=== PATIENT | male | born 2000 | race Caucasian/White ===

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

== ENCOUNTER 2020-05-19 15:26 | Outpatient (REF) | payer OTHER, SELFPAY ==
[2020-05-20 11:22] LABS: SARS COV2 PCR INHOUSE NEGATIVE (Negative)
== END 2020-05-19 15:27 | disposition home or self-care (01) ==
LOC: HO.LAB 15:26
PROVIDERS: Visit Provider Internal Medicine
DX: Z20.822 Contact with and (suspected) exposure to COVID-19 (principal)
CPT/HCPCS: C9803; U0003

== ENCOUNTER 2021-08-21 22:45 | Emergency (ER) | payer OTHER, SELFPAY ==
--- NOTE | ~2021-08-21 | CT_ITS ---
EXAMINATION: CT ABDOMEN AND PELVIS WITH CONTRAST CLINICAL INFORMATION: Right lower quadrant pain. Leukocytosis. COMPARISON: None TECHNIQUE: Multidetector volumetric images were obtained from the superior aspect of the liver through the pubic symphysis following administration 85 mL of Omnipaque 350 intravenous contrast. Sagittal and coronal reformatted images were obtained on the technologist's workstation. Oral contrast: No This CT examination was performed using dose optimization techniques as appropriate, variously including the following: *Automated exposure control *Adjustment of mA and/or kV according to patient size (this includes techniques or standardized protocols for targeted exams where dose is matched to indication/reason for exam; i.e. extremities or head) *Use of iterative reconstruction technique DLP: Four 57 mGy-cm FINDINGS: LUNG BASES: The visualized lung bases are unremarkable. LIVER, GALLBLADDER, AND BILIARY TREE: The liver is normal in size, shape, and attenuation. No focal hepatic lesion or biliary ductal dilatation is present. The gallbladder is unremarkable with no evidence of radiopaque gallstones, gallbladder wall thickening, or obvious pericholecystic inflammatory changes. PANCREAS: Unremarkable. SPLEEN: Unremarkable. ADRENAL GLANDS: Unremarkable. KIDNEYS AND URETERS: The kidneys are normal in size, shape, and attenuation. No hydronephrosis, hydroureter, or calculi seen. No perinephric stranding. BLADDER: Unremarkable. GASTROINTESTINAL TRACT: The stomach is unremarkable. Normal caliber small bowel. No obstruction. The appendix is identified. This measures 0.5 cm. No associated wall thickening or adjacent inflammation. No colonic wall thickening or inflammatory change. No free air or free fluid. ABDOMINAL WALL: No significant hernia is appreciated. LYMPH NODES: Normal. VASCULAR: Unremarkable. PELVIC VISCERA: The prostate and seminal vesicles are unremarkable. OSSEOUS STRUCTURES: Unremarkable. CT/CT abdomen pelvis w con IMPRESSION: No acute findings in the abdomen or pelvis. Normal appendix. No inflammatory change. Fleischner guidelines were followed.
[2021-08-21 23:38] VITALS: BP 107/44; PULSE 84; RESP 18; TEMP 37.1; O2SAT 97; BMI 29.8
[2021-08-21] MEDS: Ondansetron ODT 4 MG TAB.RAPDIS TRANSLINGU (23:41)
[2021-08-21 23:52] LABS: MANUAL DIFF FLAG NO
[2021-08-21 23:55] LABS: Basophils Absolute Auto 0.1 X10*3/uL (0.0-0.2); Basophils Percent Auto 0.6 % (0-2); Eosinophils Absolute Auto 0.4 X10*3/uL (0.0-0.4); Eosinophils Percent Auto 2.4 % (0-4); Hematocrit 38.9 % (42.0-52.0); Hemoglobin 12.8 g/dl (14.0-18.0); Imm Gran Abs Auto 0.05 X10*3/uL (0.00-0.03); Imm Gran Pct Auto 0.3 % (0.0-0.4); Lymphocytes Percent Auto 12.2 % (20-40); Mean Corpuscular HGB Conc 32.9 g/dl (31.0-36.0); Mean Corpuscular Hemoglobin 26.7 pg (27.0-33.0); Mean Corpuscular Volume 81.2 fL (80.0-98.0); Mean Platelet Volume 9.9 fL (9.4-12.4); Monocytes Absolute Auto 1.4 X10*3/uL (0.1-1.2); Monocytes Percent Auto 8.6 % (2-11); Neutrophils Absolute Auto 12.3 x10*3/uL (2.0-8.3); Neutrophils Percent Auto 75.9 % (45-73); Platelet Count 297 X10*3/uL (160-400); Red Blood Count 4.79 X10*6/uL (4.60-5.80); Red Cell Distribution Width 13.1 % (11.0-16.0); White Blood Count 16.2 X10*3/uL (4.8-10.8)
[2021-08-22 00:10] LABS: Appearance Urine CLEAR; Color Urine YELLOW; Glucose Urine UA NEG (NEG); Leukocyte Esterase Urine NEG (NEG); Nitrite Urine NEG (NEG); Specific Gravity - Urine 1.025 (1.005-1.025); Urine Blood NEG (NEG); Urine Ketones NEG (NEG); Urine Protein NEG (NEG-TRACE)
[2021-08-22 00:14] LABS: Alanine Aminotransferase 123 U/L (0-40); Albumin Level 4.6 g/dL (3.5-5.0); Alkaline Phosphatase 96 U/L (39-117); Anion Gap 13 (12-20); Aspartate Amino Transferase 61 U/L (5-37); Bilirubin Direct 0.3 mg/dL (0.0-0.5); Bilirubin Total 0.8 mg/dL (0.0-1.0); Blood Urea Nitrogen 13 mg/dL (9-16); Calcium 9.5 mg/dL (8.4-10.2); Carbon Dioxide 25 mmol/L (22-29); Chloride 105 mmol/L (96-108); Creatinine Clr Calc Pharmacy 114.5; Estimated Glomerular Filt Rate > 60; Glucose Random 92 mg/dL (60-115); Potassium 3.8 mmol/L (3.3-5.1); Sodium 139 mmol/L (135-145); Total Protein 7.6 g/dL (6.5-8.0)
[2021-08-22 00:25] LABS: COVID-19 Test Negative (Negative); IDNOW Serial# 55D5AD1C
--- NOTE | 2021-08-22 00:48 | ED_ITS ---
HPI - Abdominal Pain General Chief Complaint: Abdominal Pain <Chrissie CastilloBEAN - Last Filed: 08/22/21 02:36> Stated Complaint: Abd pain <Chrissie CastilloBEAN - Last Filed: 08/22/21 02:36> Time Seen by Provider: 08/22/21 00:44 <Chrissie CastilloBEAN - Last Filed: 08/22/21 02:36> Source: patient <Chrissie Castillo BEAN - Last Filed: 08/22/21 02:36> Mode of arrival: ambulatory <Chrissie CastilloBEAN - Last Filed: 08/22/21 02:36> Limitations: no limitations <Chrissie CastilloBEAN - Last Filed: 08/22/21 02:36> History of Present Illness HPI narrative: Patient presents emergency department for evaluation of right lower quadrant pain. He reports initially experiencing 1st episode of severe right lower quadrant abdominal pain with sudden onset a little over 1 month ago. He has continued to have intermittent episodes of pain in this area over the past month. He states that anywhere from 1-3 weeks ago he had an outpatient CT of his abdomen ordered by his primary care doctor at [facility], However he is unaware of the results and states that nobody contacted him regarding them. He decided to come to the emergency department today because he was experiencing significantly worsened pain to the right lower quadrant, 10/10, stabbing in nature, with associated nausea. He states that about 30 minutes prior to my exa m the pain had improved some but is still present. Denies fevers, chills, chest pain, palpitations, shortness of breath, vomiting, diarrhea, constipation, bloody or dark stools, dysuria, urinary frequency, family history of colon cancer. <Chrissie GarciaBEAN hopson - Last Filed: 08/22/21 02:36> Related Data Home Medications: Previous Rx's Medication Instructions Recorded benzonatate 100 mg capsule 100 mg PO TID PRN cough #15 caps 12/26/19 (Marbin Estrada) ibuprofen 400 mg tablet 400 mg PO Q6H PRN pain #28 tabs 12/26/19 amoxicillin 500 mg tablet 500 mg PO Q12H #20 tabs 12/30/19 <Chrissierobin Castillo CNP - Last Filed: 08/22/21 02:36> Allergies/Adverse Reactions: Allergies Allergy/AdvReac Type Severity Reaction Status Date / Time cat dander [CAT] Allergy Intermediate SNEEZING Unverified 11/01/19 16:58 ITCHY EYES <Chrissie Castillo CNP - Last Filed: 08/22/21 02:36> Review of Systems Review of Systems Constitutional : No Weight loss, No Fever, No Chills ENT/Mouth :? No sore throat, No Rhinorrhea Eyes: No Swelling, No Redness Cardiovascular : No Chest Pain, No SOB, No Edema Respiratory : No Cough, No Sputum, No Wheezing Gastrointestinal : Positive Nausea, No Vomiting, positive Diarrhea, positive ab dominal pain, No Hematochezia, No Melena Genitourinary : No Dysuria, No Urinary Frequency, No Hematuria, No Urgency? Musculoskeletal : No joint pain, No Myalgias, No Joint Swelling Skin : No Skin Lesions, No rash Neuro : No Weakness, No Numbness, No Dizziness, No Headache Psych : No Anxiety/Panic, No Depression Heme/Lymph: No Bruising, No Lymphadenopathy Endocrine : No Polyuria, No Polydipsia <Chrissie Castillo CNP - Last Filed: 08/22/21 02:36> Yes all other systems are reviewed and are negative <Chrissie Castillo CNP - Last Filed: 08/22/21 02:36> [facility] Past Medical History Attestation statement: The following information was validated with the patient. <Chrissie Castillo CNP - Last Filed: 08/22/21 02:36> Source: old records reviewed <Chrissie Castillo CNP - Last Filed: 08/22/21 02:36> Social History Social History: Social History Advance Directives: No Advance Directives Information Provided: No <Chrissie Castillo CNP - Last Filed: 08/22/21 02:36> Physical Exam ED Vital Signs: Vital Signs - 24 hr 08/21/21 23:38 08/22/21 02:24 Temperature 98.7 F Pulse Rate 84 71 Respiratory Rate 18 14 Blood Pressure 107/44 L 106/51 L Pulse Oximetry 97 98 Oxygen Delivery Method Room Air Room Air BMI result Body Mass Index 29.8 Vital signs have been reviewed as normal and appeared to be correct. Blood pressure normal.? Heart rate normal.? Respiration rate normal. Temperature norm al.? Oxygen saturation normal. <Chrissie Castillo CNP - Last Filed: 0 08/22/21 02:36> Vital Signs - 24 hr 08/21/21 23:38 08/22/21 02:24 Temperature 98.7 F Pulse Rate 84 71 Respiratory Rate 18 14 Blood Pressure 107/44 L 106/51 L Pulse Oximetry 97 98 Oxygen Delivery Method Room Air Room Air BMI result Body Mass Index 29.8 <Arin Abraham MD - Last Filed: 08/22/21 04:02> Appearance: Alert.?Oriented to person, place and time. No acute distre ss.?Normal affect. Eyes: Pupils equal, round and reactive to light.? ENT: Pharynx normal.?? Neck: Normal inspection.? Neck supple.?? CVS: Heart sounds normal. Normal heart rate and rhythm.? Pulses normal.?? Respiratory: No respiratory distress.? Lung sounds clear to auscultation bilaterally?? Abdomen: Soft With right lower quadrant tenderness. Normoactive bowel sounds. No pulsatile mass.??No rebound tenderness, negative Rovsing sign, negative obturator's sign, negative psoas sign Skin: Skin warm and dry.? Normal skin color.? Extremities: No lower extremity edema.? Neuro: Moves all extremities spontaneously. Sensation intact bilaterally. CN II- XII intact. No focal neuro deficits. Ambulates with normal steady gait. <Chrissie Castillo CNP - Last Filed: 08/22/21 02:36> Course Course Course Narrative: Patient is a 21-year-old male with no significant past medical history presenting to emergency department for evaluation of right lower quadrant pain. Does endorse some heavy lifting and moving of objects at work, there may be a component of muscular strain given his pain has been recurrent. Initial onset just over a month ago, but reports severe pain today with associated nausea. Labs obtained in triage revealed leukocytosis 16.2, elevated AST and ALT 61/123 respectively, urinalysis without sign of infection or microscopic hematuria. Denies any alcohol or recreational drug usage. Recent CT of the abdomen outpatient, concerning findings. Patient does have tenderness to the right lower quadrant on exam, concerning for possible appendicitis, given leukocytosis will obtain CT of the abdomen for further evaluation of intra-abdominal pat hology. At this time pain is currently 2/10, denies nausea. He is overall well appearing, hemodynamically stable. Disposition will be pending results. <Chrissie Castillo CNP - Last Filed: 08/22/21 02:36> Patient is a 21-year-old male with no significant past medical history presenting to emergency department for evaluation of right lower quadrant pain. Does endorse some heavy lifting and moving of objects at work, there may be a component of muscular strain given his pain has been recurrent. Initial onset just over a month ago, but reports severe pain today with associated nausea. Labs obtained in triage revealed leukocytosis 16.2, elevated AST and ALT 61/123 respectively, urinalysis without sign of infection or microscopic hematuria. Denies any alcohol or recreational drug usage. Recent CT of the abdomen o utpatient, concerning findings. Patient does have tenderness to the right lower quadrant on exam, concerning for possible appendicitis, given leukocytosis will obtain CT of the abdomen for further evaluation of intra-abdominal pathology. At this time pain is currently 2/10, denies nausea. He is overall well appearing, hemodynamically stable. Disposition will be pending results. 0400: Review of all investigations otherwise negative for acute findings. All results discussed with patient at bedside. On re-evaluation patient appears very comfortable is walking, laughing and talking his significant other. <Arin Abraham MD - Last Filed: 08/22/21 04:02> Reevaluation(s) Reevaluation #1: Patient signed out to Dr. Abraham, pending CT of abdomen for disposition. <Chrissie Castillo CNP - Last Filed: 08/22/21 02:36> Time: 02:34 <Chrissie Castillo CNP - Last Filed: 08/22/21 02:36> MDM - Abdominal Pain Medical Records Attestation: I reviewed the patient's medical records. <Chrissie Castillo CNP - Last Filed: 08/22/21 02:36> Lab Data Attestation: I reviewed the patient's lab results. <Chrissie Castillo CNP - Last Filed: 08/22/21 02:36> Result diagrams: : 08/21/21 23:51 08/21/21 23:51 <Chrissie Castillo, [facility] - Last Filed: 08/22/21 02:36> Labs: Lab Results 08/21/21 08/21/21 08/21/21 Range/Units 23:51 23:51 23:51 WBC 16.2 H (4.8-10.8) X10*3/uL RBC 4.79 (4.60-5.80) X10*6/uL Hgb 12.8 L (14.0-18.0) g/dl Hct 38.9 L (42.0-52.0) % MCV 81.2 (80.0-98.0) fL MCH 26.7 L (27.0-33.0) pg MCHC 32.9 (31.0-36.0) g/dl RDW 13.1 (11.0-16.0) % Plt Count 297 (160-400) X10*3/uL MPV 9.9 (9.4-12.4) fL Immature Gran % (Auto) 0.3 (0.0-0.4) % Neut % (Auto) 75.9 H (45-73) % Lymph % (Auto) 12.2 L (20-40) % [place] % (Auto) 8.6 (2-11) % Eos % (Auto) 2.4 (0-4) % Baso % (Auto) 0.6 (0-2) % Lymph # (Auto) 2.0 (1.2-4.9) X10*3/uL [place] # (Auto) 1.4 H (0.1-1.2) X10*3/uL Eos # (Auto) 0.4 (0.0-0.4) X10*3/uL Baso # (Auto) 0.1 (0.0-0.2) X10*3/uL Abs Immat Gran (auto) 0.05 H (0.00-0.03) X10*3/uL Absolute Neuts (auto) 12.3 H (2.0-8.3) x10*3/uL Absolute Nucleated RBC 0.000 (0.0-0.012) X10*3/uL Nucleated RBC % (auto) 0.0 (0.0-0.2) /100WBC Sodium 139 (135-145) mmol/L Potassium 3.8 (3.3-5.1) mmol/L Chloride 105 (96-108) mmol/L Carbon Dioxide 25 (22-29) mmol/L Anion Gap 13 (12-20) BUN 13 (9-16) mg/dL Creatinine 0.90 (0.5-1.4) mg/dL Estim Creat Clear Calc 114.5 Estimated GFR > 60 Random Glucose 92 (60-115) mg/dL Calcium 9.5 (8.4-10.2) mg/dL Total Bilirubin 0.8 (0.0-1.0) mg/dL Direct Bilirubin 0.3 (0.0-0.5) mg/dL AST 61 H (5-37) U/L ALT 123 H (0-40) U/L Alkaline Phosphatase 96 (39-117) U/L Total Protein 7.6 (6.5-8.0) g/dL Albumin 4.6 (3.5-5.0) g/dL Lipase 20 (8-78) U/L Urine Color Urine Appearance Urine pH (5.0-8.0) Ur Specific Brooks (1.005-1.025) Urine Protein (NEG-TRACE) MG/DL Urine Glucose (UA) (NEG) MG/DL Urine Ketones (NEG) MG/DL Urine Blood (NEG) Urine Nitrite (NEG) Ur Leukocyte Esterase (NEG) COVID-19 (NESTOR) Negative (Negative) COVID-19 Clin Com See Note 08/21/21 Range/Units 23:55 WBC (4.8-10.8) X10*3/uL RBC (4.60-5.80) X10*6/uL Hgb (14.0-18.0) g/dl Hct (42.0-52.0) % MCV (80.0-98.0) fL MCH (27.0-33.0) pg MCHC (31.0-36.0) g/dl RDW (11.0-16.0) % Plt Count (160-400) X10*3/uL MPV (9.4-12.4) fL Immature Gran % (Auto) (0.0-0.4) % Neut % (Auto) (45-73) % Lymph % (Auto) (20-40) % [place] % (Auto) (2-11) % Eos % (Auto) (0-4) % Baso % (Auto) (0-2) % Lymph # (Auto) (1.2-4.9) X10*3/uL [place] # (Auto) (0.1-1.2) X10*3/uL Eos # (Auto) (0.0-0.4) X10*3/uL Baso # (Auto) (0.0-0.2) X10*3/uL Abs Immat Gran (auto) (0.00-0.03) X10*3/uL Absolute Neuts (auto) (2.0-8.3) x10*3/uL Absolute Nucleated RBC (0.0-0.012) X10*3/uL Nucleated RBC % (auto) (0.0-0.2) /100WBC Sodium (135-145) mmol/L Potassium (3.3-5.1) mmol/L Chloride (96-108) mmol/L Carbon Dioxide (22-29) mmol/L Anion Gap (12-20) BUN (9-16) mg/dL Creatinine (0.5-1.4) mg/dL Estim Creat Clear Calc Estimated GFR Random Glucose (60-115) mg/dL Calcium (8.4-10.2) mg/dL Total Bilirubin (0.0-1.0) mg/dL Direct Bilirubin (0.0-0.5) mg/dL AST (5-37) U/L ALT (0-40) U/L Alkaline Phosphatase (39-117) U/L Total Protein (6.5-8.0) g/dL Albumin (3.5-5.0) g/dL Lipase (8-78) U/L Urine Color YELLOW Urine Appearance CLEAR Urine pH 6.0 (5.0-8.0) Ur Specific Brooks 1.025 (1.005-1.025) Urine Protein NEG (NEG-TRACE) MG/DL Urine Glucose (UA) NEG (NEG) MG/DL Urine Ketones NEG (NEG) MG/DL Urine Blood NEG (NEG) Urine Nitrite NEG (NEG) Ur Leukocyte Esterase NEG (NEG) COVID-19 (NESTOR) (Negative) COVID-19 Clin Com <Chrissie Garciamark anthony, [employer]OUNTING [employer]IST[employer] - Last Filed: 08/22/21 02:36> Lab Results 08/21/21 08/21/21 08/21/21 Range/Units 23:51 23:51 23:51 WBC 16.2 H (4.8-10.8) X10*3/uL RBC 4.79 (4.60-5.80) X10*6/uL Hgb 12.8 L (14.0-18.0) g/dl Hct 38.9 L (42.0-52.0) % MCV 81.2 (80.0-98.0) fL MCH 26.7 L (27.0-33.0) pg MCHC 32.9 (31.0-36.0) g/dl RDW 13.1 (11.0-16.0) % Plt Count 297 (160-400) X10*3/uL MPV 9.9 (9.4-12.4) fL Immature Gran % (Auto) 0.3 (0.0-0.4) % Neut % (Auto) 75.9 H (45-73) % Lymph % (Auto) 12.2 L (20-40) % [place] % (Auto) 8.6 (2-11) % Eos % (Auto) 2.4 (0-4) % Baso % (Auto) 0.6 (0-2) % Lymph # (Auto) 2.0 (1.2-4.9) X10*3/uL [place] # (Auto) 1.4 H (0.1-1.2) X10*3/uL Eos # (Auto) 0.4 (0.0-0.4) X10*3/uL Baso # (Auto) 0.1 (0.0-0.2) X10*3/uL Abs Immat Gran (auto) 0.05 H (0.00-0.03) X10*3/uL Absolute Neuts (auto) 12.3 H (2.0-8.3) x10*3/uL Absolute Nucleated RBC 0.000 (0.0-0.012) X10*3/uL Nucleated RBC % (auto) 0.0 (0.0-0.2) /100WBC Sodium 139 (135-145) mmol/L Potassium 3.8 (3.3-5.1) mmol/L Chloride 105 (96-108) mmol/L Carbon Dioxide 25 (22-29) mmol/L Anion Gap 13 (12-20) BUN 13 (9-16) mg/dL Creatinine 0.90 (0.5-1.4) mg/dL Estim Creat Clear Calc 114.5 Estimated GFR > 60 Random Glucose 92 (60-115) mg/dL Calcium 9.5 (8.4-10.2) mg/dL Total Bilirubin 0.8 (0.0-1.0) mg/dL Direct Bilirubin 0.3 (0.0-0.5) mg/dL AST 61 H (5-37) U/L ALT 123 H (0-40) U/L Alkaline Phosphatase 96 (39-117) U/L Total Protein 7.6 (6.5-8.0) g/dL Albumin 4.6 (3.5-5.0) g/dL Lipase 20 (8-78) U/L Urine Color Urine Appearance Urine pH (5.0-8.0) Ur Specific Brooks (1.005-1.025) Urine Protein (NEG-TRACE) MG/DL Urine Glucose (UA) (NEG) MG/DL Urine Ketones (NEG) MG/DL Urine Blood (NEG) Urine Nitrite (NEG) Ur Leukocyte Esterase (NEG) COVID-19 (NESTOR) Negative (Negative) COVID-19 Clin Com See Note 08/21/21 Range/Units 23:55 WBC (4.8-10.8) X10*3/uL RBC (4.60-5.80) X10*6/uL Hgb (14.0-18.0) g/dl Hct (42.0-52.0) % MCV (80.0-98.0) fL MCH (27.0-33.0) pg MCHC (31.0-36.0) g/dl RDW (11.0-16.0) % Plt Count (160-400) X10*3/uL MPV (9.4-12.4) fL Immature Gran % (Auto) (0.0-0.4) % Neut % (Auto) (45-73) % Lymph % (Auto) (20-40) % [place] % (Auto) (2-11) % Eos % (Auto) (0-4) % Baso % (Auto) (0-2) % Lymph # (Auto) (1.2-4.9) X10*3/uL [place] # (Auto) (0.1-1.2) X10*3/uL Eos # (Auto) (0.0-0.4) X10*3/uL Baso # (Auto) (0.0-0.2) X10*3/uL Abs Immat Gran (auto) (0.00-0.03) X10*3/uL Absolute Neuts (auto) (2.0-8.3) x10*3/uL Absolute Nucleated RBC (0.0-0.012) X10*3/uL Nucleated RBC % (auto) (0.0-0.2) /100WBC Sodium (135-145) mmol/L Potassium (3.3-5.1) mmol/L Chloride (96-108) mmol/L Carbon Dioxide (22-29) mmol/L Anion Gap (12-20) BUN (9-16) mg/dL Creatinine (0.5-1.4) mg/dL Estim Creat Clear Calc Estimated GFR Random Glucose (60-115) mg/dL Calcium (8.4-10.2) mg/dL Total Bilirubin (0.0-1.0) mg/dL Direct Bilirubin (0.0-0.5) mg/dL AST (5-37) U/L ALT (0-40) U/L Alkaline Phosphatase (39-117) U/L Total Protein (6.5-8.0) g/dL Albumin (3.5-5.0) g/dL Lipase (8-78) U/L Urine Color YELLOW Urine Appearance CLEAR Urine pH 6.0 (5.0-8.0) Ur Specific Brooks 1.025 (1.005-1.025) Urine Protein NEG (NEG-TRACE) MG/DL Urine Glucose (UA) NEG (NEG) MG/DL Urine Ketones NEG (NEG) MG/DL Urine Blood NEG (NEG) Urine Nitrite NEG (NEG) Ur Leukocyte Esterase NEG (NEG) COVID-19 (NESTOR) (Negative) COVID-19 Clin Com <Arin Abraham MD - Last Filed: 08/22/21 04:02> Discharge Plan Discharge Clinical Impression: Abdominal pain <Chrissie Castillo CNP - Last Filed: 08/22/21 02:36> Patient Disposition: Home, Self-Care <Chrissie Castillo CNP - Last Filed: 08/22/21 02:36> Instructions: Abdominal Pain (ED) <Chrissie Castillo CNP - Last Filed: 08/22/21 02:36> Additional Instructions: 1. This is possibly muscular in nature, as there were no findings to better explain your presentation. Recommend [id number] Tylenol/ibuprofen as well as possible lidocaine patch and hot compresses the next time that this happens. 2. Follow-up with primary care provider in the next 2-3 days for re-evaluation. Return to the ER for worsening symptoms. <Chrissie Castillo CNP - Last Filed: 08/22/21 02:36> Prescriptions: No Action benzonatate [Tessalon Perles] 100 mg capsule 100 mg PO TID PRN (Reason: cough) Qty: 15 0RF ibuprofen 400 mg tablet 400 mg PO Q6H PRN (Reason: pain) Qty: 28 0RF amoxicillin 500 mg tablet 500 mg PO Q12H Qty: 20 0RF <Chrissie Castillo CNP - Last Filed: 08/22/21 02:36>
[2021-08-22 01:02] LABS: Lipase 20 U/L (8-78)
[2021-08-22] MEDS: iohexoL 350 MG/ML 100 ML INFUS..BTL 85 ML IV (02:21)
[2021-08-22 02:24] VITALS: BP 106/51; PULSE 71; RESP 14; O2SAT 98
[2021-08-22 04:03] VITALS: BP 105/57; PULSE 78; RESP 16; TEMP 36.8; O2SAT 97
== END 2021-08-22 04:06 | disposition home or self-care (01) ==
PROVIDERS: Internal Medicine; Nurse Practitioner Family; Emergency Provider Student in an Organized Health Care Education/Training Program
DX: R10.31 Right lower quadrant pain (principal); Z20.822 Contact with and (suspected) exposure to COVID-19; R11.0 Nausea
CPT/HCPCS: 36415; 74177; 80053; 81003; 82248; 83690; 85025; 87635; 99284; Q9967

== ENCOUNTER 2022-11-25 09:41 | Emergency (ER) | payer OTHER, SELFPAY ==
--- NOTE | ~2022-11-25 | CT_ITS ---
EXAMINATION: CT CERVICAL SPINE WITHOUT CONTRAST CLINICAL INFORMATION: Fall, increasing pain radiating to arm. COMPARISON: None available. TECHNIQUE: 3 mm thin axial and reformatted 2 mm thin sagittal and coronal images of cervical spine were obtained. This CT examination was performed using dose optimization techniques as appropriate, variously including the following: *Automated exposure control *Adjustment of mA and/or kV according to patient size (this includes techniques or standardized protocols for targeted exams where dose is matched to indication/reason for exam; i.e. extremities or head) *Use of iterative reconstruction technique DLP: 660 mGy-cm FINDINGS: There is mild straightening of cervical lordosis. The vertebral heights, alignment and disc heights are normal. The craniovertebral junction and C1-C2 alignment is normal. There is no visible acute fracture, dislocation or subluxation. The prevertebral and paravertebral soft tissues are normal. Central trachea and the bronchi are widely patent. The lung apices are clear. CT/CT cervical spine wo IV con IMPRESSION: No acute fracture, dislocation or subluxation seen. Mild straightening of cervical lordosis likely spasm. Fleischner guidelines were followed.
[2022-11-25 10:23] VITALS: BP 124/64; PULSE 60; RESP 19; TEMP 36.6; O2SAT 98; BMI 35.7
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
== END 2022-11-25 15:56 | disposition home or self-care (01) ==
PROVIDERS: Emergency Provider Emergency Medicine
DX: S16.1XXA Strain of muscle, fascia and tendon at neck level, initial encounter (principal); Y01.XXXA Assault by pushing from high place, initial encounter; Y93.89 Activity, other specified; Y92.9 Unspecified place or not applicable; Y99.0 Civilian activity done for income or pay
CPT/HCPCS: 72125; 99282; 99284

== ENCOUNTER 2023-05-16 19:22 | Emergency (ER) | payer OTHER, SELFPAY ==
--- NOTE | ~2023-05-16 | XR_ITS ---
EXAMINATION: XR CHEST CLINICAL INFORMATION: Cough. COMPARISON: Chest radiograph 12/26/2019. TECHNIQUE: 2 views of the chest were obtained. FINDINGS: No significant abnormality is noted involving the heart, lungs, mediastinum, bony thorax or soft tissues. XR/XR chest 2V IMPRESSION: Unremarkable examination.
[2023-05-16 20:08] VITALS: BP 115/34; PULSE 72; RESP 20; TEMP 36.7; O2SAT 94; BMI 33.8
--- NOTE | 2023-05-16 20:09 | ED.GENADULT ---
HPI - General Adult General Chief complaint: Dyspnea Stated complaint: breathing difficulties Time Seen by Provider: 05/16/23 20:34 Source: patient Mode of arrival: ambulatory History of Present Illness HPI narrative: 23-year-old male with history of asthma states that he has had increasing dry cough, nasal congestion and shortness of breath for the past 4 days and states that is inhaler is no longer providing additional relief, however he denies any fevers or chills or sick contacts. Related Data Previous Rx's Medication Instructions Recorded benzonatate 100 mg capsule 100 mg PO TID PRN cough #15 caps 12/26/19 (Marbin Estrada) ibuprofen 400 mg tablet 400 mg PO Q6H PRN pain #28 tabs 12/26/19 amoxicillin 500 mg tablet 500 mg PO Q12H #20 tabs 12/30/19 cyclobenzaprine 5 mg tablet 5 mg PO TID PRN muscle spasm #10 11/25/22 tabs lidocaine 5 % topical patch 1 patch topical DAILY #15 ea 11/25/22 prednisone 20 mg tablet 40 mg (2 x 20 mg) PO DAILY #10 tabs 11/25/22 prednisone 50 mg tablet 50 mg PO DAILY 4 days #4 tabs 05/16/23 Allergies Allergy/AdvReac Type Severity Reaction Status Date / Time cat dander [CAT] Allergy Intermediate SNEEZING Verified 05/16/23 20:08 ITCHY EYES Review of Systems Review of Systems: Pertinent positives and negatives as stated in HPI [facility] Past Medical History Source: nursing notes reviewed Social History Social History Smoked in Last 30 Days: Yes Use of substances other than those prescribed or required for medical reasons: No Advance Directives: No Advance Directives Information Provided: No Physical Exam ED Vital Signs: Vital Signs - 24 hr 05/16/23 20:08 05/16/23 20:34 Temperature 98.1 F Pulse Rate 72 80 Respiratory Rate 20 20 Blood Pressure 115/34 L Pulse Oximetry 94 Oxygen Delivery Method Room Air BMI result Body Mass Index 33.8 VITAL SIGNS: Reviewed. GENERAL: Well developed, well nourished, in no acute distress. HEAD: Normocephalic/atraumatic EYES: PERRLA, EOMI EARS: Ext canals without abnormality, TMs non-bulging and non-erythematous NOSE: Nares patent bilateral OROPHARYNX: no oral lesions noted, posterior pharynx clear and non-erythematous without noted tonsillar enlargement/erythema/exudates NECK: Supple, no adenopathy LUNGS: Audible wheeze, decreased breath sounds bilaterally with minimal expiratory wheeze, tachypnea and increased work of breathing or present. SpO2<94> CARDIOVASCULAR: Regular rate and rhythm without noted murmurs ABDOMEN: Soft, non-tender, non-distended with bowel sounds. MUSCULOSKELETAL: No tenderness, deformities, or effusions noted on gross inspection. EXTREMITIES: No cyanosis, clubbing or edema. SKIN: Inspection of the skin reveals no rashes NEUROLOGIC: Alert and oriented x 4. Strength and sensation to light touch were grossly intact x 4. Course Course Course Narrative: This is a rapid medical exam: Additional HPI, ROS, PE not included below will be deferred to primary provider. Patient is a 23-year-old male with history of asthma presenting to the ED with complaint of shortness of breath, wheezing, cough and nasal congestion for the past 3 days. States cough is non-productive. Denies fevers. Using inhalers with little relief. Plan: viral swabs, cxr Medications Administered Discontinued Medications Generic Name Dose Route Start Last Admin Trade Name Freq PRN Reason Stop Dose Admin Albuterol Sulfate 2.5 mg/ 0 mg 05/16/23 20:29 05/16/23 20:33 Albuterol/Ipratropium 3 ml INHALE 05/16/23 20:30 5 dose ONCE ONE Administration Prednisone 50 mg 05/16/23 20:34 05/16/23 20:46 Prednisone 10 Mg Tablet PO 05/16/23 20:35 50 mg ONCE ONE Administration Medical Decision Making Medical Decision Making [facility] Narrative: 23-year-old male with history and clinical presentation, DDX: Acute asthma exacerbation, possible viral illness, no clinical suspicion for pneumonia. INTERVENTION: Chest x-ray, viral testing, ED bronch, prednisone Signed out to Dr Castellon - clinically improvement Took over patient's case the change of shift. Patient's COVID flu RSV were all negative. Lungs are clear at this point. [place] comfortable about going home. Patient is currently in stable condition will discharge Differential Diagnosis Differential Diagnoses: The differential diagnosis associated with the presentation includes Please see the discussion above Admission/Observation Consideration of admission/observation: Escalation of care including admission/observation considered Please see the discussion above Lab Data [facility] Lab Attestation statement: I reviewed the patient's lab results. Please see the discussion above Labs: Lab Results 05/16/23 Range/Units 20:28 Influenza Type A (PCR) NEGATIVE (Negative) Influenza Type B (PCR) NEGATIVE (Negative) RSV RNA Qual (PCR) NEGATIVE (Negative) SARS-CoV-2 RNA (RT-PCR) NEGATIVE (Negative) Radiology Impression Discussion of test interpretation with radiology: I have reviewed the radiologist's reading. Radiologist Impression: Please see the discussion above External Record Review External record reviewed: Outpatient record and Prior outpatient labs Chronic Conditions Patient?s care impacted by: Other Asthma Critical Care Time Critical Care Time Critical Care Time: Yes Total Critical Care Time: 45 Attestation: I personally attest to this time spent taking care of the patient. Discharge Plan Discharge Clinical Impression: Asthma with exacerbation Patient Disposition: Still a Patient Instructions: Asthma (ED) Additional Instructions: 1. Resume all home medications as prescribed. 2. Complete the short course of steroids that you have been started on. 3. I recommend initiating seasonal allergy medications such as Claritin and Flonase 4. Please follow-up with your primary care doctor. Return to the ER for any worsening symptoms. Prescriptions: New prednisone 50 mg tablet 50 mg PO DAILY 4 Days Qty: 4 0RF No Action benzonatate [Tessalon Perles] 100 mg capsule 100 mg PO TID PRN (Reason: cough) Qty: 15 0RF ibuprofen 400 mg tablet 400 mg PO Q6H PRN (Reason: pain) Qty: 28 0RF amoxicillin 500 mg tablet 500 mg PO Q12H Qty: 20 0RF cyclobenzaprine 5 mg tablet 5 mg PO TID PRN (Reason: muscle spasm) Qty: 10 0RF lidocaine 5 % adhesive patch,medicated 1 patch topical DAILY Qty: 15 0RF Rx Instructions: leave on most painful area for up to 12 hrs prednisone 20 mg tablet 40 mg PO DAILY Qty: 10 0RF
[2023-05-16] MEDS: Albuterol Sulfate 2.5 MG, Albuterol/Iprat 2.5/0.5MG 3 ML 3 ML INHALE (20:33)
[2023-05-16 20:34] VITALS: PULSE 80; RESP 20; O2SAT 98
[2023-05-16] MEDS: predniSONE 10 MG TABLET 50 MG PO (20:46)
[2023-05-16 21:11] LABS: Influenza A PCR NEGATIVE (Negative); Influenza B PCR NEGATIVE (Negative); Resp Syncy Virus RNA Qual PCR NEGATIVE (Negative); SARS COV2 PCR INHOUSE NEGATIVE (Negative)
[2023-05-16 21:59] VITALS: BP 108/60; PULSE 70; RESP 20; TEMP 36.6; O2SAT 98
== END 2023-05-16 21:59 | disposition home or self-care (01) ==
PROVIDERS: Registered Nurse Emergency; Emergency Provider Emergency Medicine Emergency Medical Services
DX: J45.901 Unspecified asthma with (acute) exacerbation (principal); R06.02 Shortness of breath; R06.9 Unspecified abnormalities of breathing; Z11.52 Encounter for screening for COVID-19; Z20.822 Contact with and (suspected) exposure to COVID-19
CPT/HCPCS: 0241U; 71046; 94640; 99284

== ENCOUNTER 2023-05-21 10:22 | Observation (INO) | payer OTHER, SELFPAY ==
[2023-05-21] VITALS (11 sets, daily range): BP systolic 114–121; BP diastolic 42–65; PULSE 90–110; RESP 18–26; TEMP 36.3–37.2; O2SAT 90–96; BMI 34.3; BMI 33.7
--- NOTE | ~2023-05-21 | XR_ITS ---
EXAMINATION: XR CHEST CLINICAL INFORMATION: Cough COMPARISON: Chest x-ray on 05/16/2023 TECHNIQUE: Frontal view of the chest was obtained. FINDINGS: The cardiac silhouette is normal. There is mild diffuse bronchial wall thickening. There are no areas of consolidation. There are no pleural effusions or pneumothoraces. The bones and soft tissues are unremarkable for the patient's age. XR/XR chest 1V IMPRESSION: Bronchial wall thickening may be infectious and/or inflammatory in etiology.
[2023-05-21 10:54] LABS: IDNOW Serial# 08D9AD1C; Strep A Nucleic Acid Negative (Negative)
--- NOTE | 2023-05-21 11:27 | ED.GENADULT ---
HPI - General Adult General Chief complaint: Upper Respiratory Symptoms Stated complaint: Breathing Difficulties Time Seen by Provider: 05/21/23 10:38 Source: patient Mode of arrival: ambulatory Limitations: no limitations History of Present Illness HPI narrative: This is a 23-year-old male presenting to the emergency department fatigue, malaise, wheezing, shortness of breath and slight sore throat ongoing for the past 3 days. Patient reports he just has not been feeling well. He has been using his inhaler with little to no relief. He reports he is never felt this poorly. No known sick contacts. Denies chest pain, nausea, vomiting, abdominal pain, diarrhea, headache, vision changes, dizziness, weakness, changes in voice, drooling. Related Data Previous Rx's ?Medication ?Instructions ?Recorded benzonatate 100 mg capsule 100 mg PO TID PRN cough #15 caps 12/26/19 (Marbin Estrada) ibuprofen 400 mg tablet 400 mg PO Q6H PRN pain #28 tabs 12/26/19 amoxicillin 500 mg tablet 500 mg PO Q12H #20 tabs 12/30/19 cyclobenzaprine 5 mg tablet 5 mg PO TID PRN muscle spasm #10 11/25/22 tabs lidocaine 5 % topical patch 1 patch topical DAILY #15 ea 11/25/22 prednisone 20 mg tablet 40 mg (2 x 20 mg) PO DAILY #10 tabs 11/25/22 prednisone 50 mg tablet 50 mg PO DAILY 4 days #4 tabs 05/16/23 albuterol sulfate 90 mcg/actuation 2 inh inhalation Q4-6H PRN 05/21/23 breath activated powder inhaler shortness of breath or wheezing #1 ea prednisone 20 mg tablet 40 mg (2 x 20 mg) PO DAILY 5 days 05/21/23 #10 tabs Allergies Allergy/AdvReac Type Severity Reaction Status Date / Time cat dander [CAT] Allergy Intermediate SNEEZING Verified 05/21/23 10:33 ITCHY EYES Review of Systems Review of Systems: Yes all other systems are reviewed and are negative PMFSH Past Medical History Attestation statement: The following information was validated with the patient. Source: old records reviewed and nursing notes reviewed Social History Social History Smoked in Last 30 Days: Yes Use of substances other than those prescribed or required for medical reasons: No Advance Directives: No Advance Directives Information Provided: No Physical Exam ED Vital Signs: Vital Signs - 24 hr 05/21/23 10:29 05/21/23 11:40 05/21/23 12:15 Temperature 98.7 F Pulse Rate 95 Respiratory Rate 20 Blood Pressure 120/57 L Pulse Oximetry 92 92 94 Oxygen Delivery Method Room Air Room Air Room Air 05/21/23 12:16 05/21/23 13:07 Temperature Pulse Rate 91 Respiratory Rate 26 H Blood Pressure Pulse Oximetry 92 Oxygen Delivery Method Room Air BMI result Body Mass Index 34.3 vss Appearance: Alert.? Oriented X3.? No acute distress.? Head: Normocephalic, atraumatic, no step-offs or deformities Eyes: Pupils equal, round and reactive to light.? ENT: Pharynx normal.? Neck: Normal inspection.? Neck supple.? CVS: Normal heart rate and rhythm.? Pulses normal.? Respiratory: No respiratory distress.? Breath sounds diminished bilaterally with wheezing bilaterally particularly with expiration..? Abdomen: Soft and nontender.? Skin: Skin warm and dry.? Normal skin color.? Normal skin turgor.? Extremities: No lower extremity edema.? No calf ttp. 5/5 strength to bilateral upper and lower extremities Neuro: Oriented X 3.? No motor deficit.? No sensory deficit. CN 2-12 intact Course Reevaluation(s) Reevaluation #1: Flu/COVID/RSV negative. Strep negative. Chest x-ray with bronchial wall thickening infectious versus inflammatory in etiology. This is likely inflammatory. Patient has been evaluated by myself multiple times still having wheezing and diminished breath sounds bilaterally. He is saturating 90% on room air without movement. Reporting significant shortness of breath with exertion. Time: 13:32 Reevaluation #2: will add basic labs for admisison. Time: 13:35 Medications Administered Discontinued Medications Generic Name Dose Route Start Last Admin Trade Name Freq PRN Reason Stop Dose Admin Albuterol Sulfate 5 mg/ 0 mg 05/21/23 13:03 05/21/23 13:06 Albuterol/Ipratropium 3 ml INHALE 05/21/23 13:04 1 each ONCE ONE Administration Dexamethasone Sodium Phosphate 10 mg 05/21/23 11:34 05/21/23 12:15 Dexamethasone Sod Phosphate 10 Mg/Ml Vial IVPUSH 05/21/23 11:35 10 mg ONCE ONE Administration Medical Decision Making Medical Decision Making MDM Narrative: 23-year-old male presents with shortness of breath fatigue, malaise, myalgias, slight sore throat ongoing for the past 3 days. Not improving. Physical exam significant for diminished breath sounds bilaterally with wheezing. Patient appears to be in mild acute respiratory distress. Significantly winded with ambulation. Concerns for asthma versus viral illness versus flu versus COVID versus RSV versus bronchitis. Unlikely pneumonia, PE, ACS. PERC - Plan labs, imaging. , viral testing. Will give breathing treatments, Decadron, magnesium Differential Diagnosis Differential Diagnoses: The differential diagnosis associated with the presentation includes Concerns for asthma versus viral illness versus flu versus COVID versus RSV versus bronchitis. Unlikely pneumonia, PE, ACS. Admission/Observation Consideration of admission/observation: Escalation of care including admission/observation considered Likely Consult Healthcare Provider Management of the patient was discussed with: Hospitalist Lab Data MDM Lab Attestation statement: I reviewed the patient's lab results. Labs: Lab Results 05/21/23 Range/Units 10:39 Influenza Type A (PCR) NEGATIVE (Negative) Influenza Type B (PCR) NEGATIVE (Negative) RSV RNA Qual (PCR) NEGATIVE (Negative) SARS-CoV-2 RNA (RT-PCR) NEGATIVE (Negative) S. pyogenes GrpA LATONIA Negative (Negative) Independent Interpretation I performed an independent interpretation of an: Plain X-Ray ( XR/XR chest 1V IMPRESSION: Bronchial wall thickening may be infectious and/or inflammatory in etiology. ) Radiology Impression Discussion of test interpretation with radiology: I have reviewed the radiologist's reading. External Record Review External record reviewed: Inpatient record, Office record, Outpatient record, Prior outpatient labs, Prior outpatient radiology, Primary care record and Outside ED record Tests considered The following testing was considered but not selected: Consider chest CT however no indication at this time. Chronic Conditions Patient?s care impacted by: Other (Asthma, obesity) Critical Care Time Critical Care Time Critical Care Time: Yes Total Critical Care Time: 35 Attestation: I attest to this time spent taking care of the patient, obtaining history, physical, reviewing labs, imaging, speaking to my attending, speaking to specialist. Discharge Plan Discharge Clinical Impression: Upper respiratory infection, Asthma Patient Disposition: Admitted As Inpatient Instructions: Upper Respiratory Infection (ED), Wheezing (ED) Additional Instructions: Take your medications as prescribed. If you were prescribed antibiotics today, it is important that you take your medication to their entirety, do not skip any doses, do not finish them early. Follow-up with your primary care provider this week. Return to the emergency department with new or worsening symptoms. Such as fevers, chills, chest pain, shortness of breath, nausea, vomiting, dizziness, headache, vision changes, lethargy In case of emergency call 911 Prescriptions: New prednisone 20 mg tablet 40 mg PO DAILY 5 Days Qty: 10 0RF albuterol sulfate 90 mcg/actuation aerosol powdr breath activated 2 inh inhalation Q4-6H PRN (Reason: shortness of breath or wheezing) Qty: 1 0RF No Action benzonatate [Tessalon Perles] 100 mg capsule 100 mg PO TID PRN (Reason: cough) Qty: 15 0RF ibuprofen 400 mg tablet 400 mg PO Q6H PRN (Reason: pain) Qty: 28 0RF amoxicillin 500 mg tablet 500 mg PO Q12H Qty: 20 0RF cyclobenzaprine 5 mg tablet 5 mg PO TID PRN (Reason: muscle spasm) Qty: 10 0RF lidocaine 5 % adhesive patch,medicated 1 patch topical DAILY Qty: 15 0RF Rx Instructions: leave on most painful area for up to 12 hrs prednisone 20 mg tablet 40 mg PO DAILY Qty: 10 0RF prednisone 50 mg tablet 50 mg PO DAILY 4 Days Qty: 4 0RF Referrals: Physician,Unknown J [Primary Care Provider] - 2 days Stand Alone Forms: Work/School Release Print Language: Vietnamese
[2023-05-21 11:33] LABS: Influenza A PCR NEGATIVE (Negative); Influenza B PCR NEGATIVE (Negative); Resp Syncy Virus RNA Qual PCR NEGATIVE (Negative); SARS COV2 PCR INHOUSE NEGATIVE (Negative)
--- NOTE | 2023-05-21 11:47 | MHC.EDTECH ---
Walked patient in [place] 02 stood steady at 94%
[2023-05-21] MEDS: dexAMETHasone sod phosphate 10 MG/ML VIAL IVPUSH (12:15)
[2023-05-21] MEDS: Albuterol Sulfate 5 MG, Albuterol/Iprat 2.5/0.5MG 3 ML 3 ML INHALE (13:06)
--- NOTE | 2023-05-21 14:27 | HO.PM.IMPN ---
Subjective Subjective Date of Service: 05/21/23 Physical Exam Vital Signs: Vital Signs: Last Vital Signs Temp 98.7 F 05/21/23 10:29 Pulse 91 05/21/23 13:07 Resp 26 H 05/21/23 13:07 BP 120/57 L 05/21/23 10:29 Pulse Ox 92 05/21/23 12:16 O2 Del Method Room Air 05/21/23 12:16 BMI result Body Mass Index 34.3 Objective Data Active Medications Magnesium Sulfate (Magnesium Sulfate/H2o) 2 gm in 50 mls @ 25 mls/hr IV ONCE ONE Stop: 05/21/23 15:30 Labs Labs: Laboratory Results - last 24 hr 05/21/23 10:39 Influenza Type A (PCR) NEGATIVE Influenza Type B (PCR) NEGATIVE RSV RNA Qual (PCR) NEGATIVE SARS-CoV-2 RNA (RT-PCR) NEGATIVE S. pyogenes GrpA LATONIA Negative Quality VTE VTE Risk Level:: Medical - low VTE Device Contraindication: N/A - Device Ordered VTE Drug Contraindication: Treatment Not Indicated
--- NOTE | 2023-05-21 14:34 | PM.IMHP ---
History of Present Illness Date of Service: 05/21/23 Attending physician on admission: Madhu Hall Chief Complaint: sob This is a 23-year-old male with history of mild intermittent asthma who presents to the emergency department with shortness of breath. Patient was seen in the emergency department on May 15 with similar symptoms was given a course of prednisone and discharged home. Patient reports shortness of breath with associated dry cough, sinus congestion, headache, sore throat. He denies any fever, chills. No recent sick contacts. His symptoms have not improved therefore he presented again today. Chest x-ray revealed no evidence of pneumonia RSV, flu, influenza negative. Throat swab negative for strep throat. Patient received breathing treatment steroids and IV magnesium but continued to feel short of breath and continued to have wheezing. In addition his oxygen saturations were on the low side, 88-90% and for this reason the decision was made to admit him overnight for observation and further management of acute asthma exacerbation. Review of Systems Review of Systems: Yes all other systems are reviewed and are negative Constitutional: Constitutional: Denies chills and Denies fever(s) [facility] Medical History (Updated 05/21/23 @ 14:36 by LINDSAY Childs) Asthma Pertinent family history: father has history of asthma Social History (Updated 05/21/23 @ 14:37 by LINDSAY Childs) e-Cigarette/Vaping Use: Currently Using Meds Allergies Allergy/AdvReac Type Severity Reaction Status Date / Time cat dander [CAT] Allergy Intermediate SNEEZING Verified 05/21/23 10:33 ITCHY EYES Active Medications: Current Medications Acetaminophen (Acetaminophen 325 Mg Tablet) 650 mg PO Q6H PRN PRN Reason: Pain, Mild (Pain Scale 1-3) Albuterol Sulfate (Albuterol Sulfate (0.083%) 2.5 Mg/3 Ml Vial.Neb) 2.5 mg INHALE Q4H PRN PRN Reason: Shortness of Breath/Wheezing Albuterol/Ipratropium (Albuterol/Iprat 2.5/0.5mg 3 Ml Ampul.Neb) 3 ml INHALE RQ6H WHILE AWAKE CHUYITA Benzonatate (Benzonatate 100 Mg Capsule) 100 mg PO TID CHU[place] Docusate Sodium (Docusate Sodium 100 Mg Capsule) 100 mg PO DAILY PRN PRN Reason: Constipation Magnesium Sulfate (Magnesium Sulfate/H2o) 2 gm in 50 mls @ 25 mls/hr IV ONCE ONE Stop: 05/21/23 15:30 Methylprednisolone Sodium Succinate (Methylprednisolone Sod Succ 40 Mg/Ml Vial) 40 mg IVPUSH Q12H CHU[place] Ondansetron HCl (Ondansetron Hcl 4 Mg/2 Ml Vial) 4 mg IVPUSH Q8H PRN PRN Reason: Nausea and Vomiting Sodium Chloride (0.9 % Sodium Chloride Flush 3 Ml Syringe) 3 ml IVFLUSH QSHIFT CHUYITA Physical Exam Vital Signs and Narrative: Vital Signs: Last Vital Signs Temp 97.3 F 05/21/23 14:30 Pulse 110 H 05/21/23 14:30 Resp 22 H 05/21/23 14:30 BP 121/42 L 05/21/23 14:30 Pulse Ox 94 05/21/23 14:30 O2 Del Method Room Air 05/21/23 14:30 BMI result Body Mass Index 34.3 Const: General: cooperative, comfortable, no acute distress, alert and awake Nutritional Appearance: average body habitus Orientation/consciousness: patient oriented x3 Resp: Other: Bilateral expiratory wheeze Effort & Inspection: normal respiratory effort, able to speak in complete sentences, no respiratory distress and no use of accessory muscles Cardio: Rate: regular rate GI: Inspection: No distended Palpation (GI): Soft to palpation and nontender Neuro: General: patient oriented x3, moves all extremities and CN's II-XI intact bilaterally Extrem: General: Yes no pedal edema Results Labs Labs: Laboratory Results - last 24 hr 05/21/23 10:39 Influenza Type A (PCR) NEGATIVE Influenza Type B (PCR) NEGATIVE RSV RNA Qual (PCR) NEGATIVE SARS-CoV-2 RNA (RT-PCR) NEGATIVE S. pyogenes GrpA LATONIA Negative Imaging Radiologist's Impressions: Impressions Chest X-Ray 05/21/23 10:49 IMPRESSION: Bronchial wall thickening may be infectious and/or inflammatory in etiology. Assessment and Plan (1) Asthma: Status: Inactive Plan This is a 23-year-old male with history of mild intermittent asthma who presents to the emergency department for the 2nd time this week with ongoing shortness of breath, cough will be admitted for observation for asthma exacerbation Acute exacerbation of mild intermittent asthma Scheduled and as needed bronchodilator therapy, systemic steroids Supportive care for cough We will check respiratory pathogen panel DVT prophylaxis-low risk, early ambulation, mechanical Quality Stroke Does the patient have a stroke diagnosis?: No VTE Prior VTE?: No VTE Risk Level:: Medical - low VTE Device Contraindication: N/A - Device Ordered VTE Drug Contraindication: Treatment Not Indicated
[2023-05-21] MEDS: methylPREDNISolone Sod Succ 40 MG/ML VIAL IVPUSH (15:02)
[2023-05-21] MEDS: Benzonatate 100 MG CAPSULE PO ×2 (15:02→21:08)
[2023-05-21] MEDS: Magnesium Sulfate/H2O 2 GM/50 ML PIGGYBACK IV (15:02)
[2023-05-21 15:37] LABS: MANUAL DIFF FLAG NO
--- NOTE | 2023-05-21 15:49 | PHA.MEDREC ---
Pharmacy Consult ? Medication Reconciliation Pharmacy has completed the medication reconciliation.
[2023-05-21 15:53] LABS: Alanine Aminotransferase 80 U/L (0-40); Albumin Level 4.4 g/dL (3.5-5.0); Alkaline Phosphatase 119 U/L (39-117); Anion Gap 12 (12-20); Aspartate Amino Transferase 43 U/L (5-37); Bilirubin Total 0.5 mg/dL (0.0-1.0); Blood Urea Nitrogen 11 mg/dL (9-16); Calcium 9.6 mg/dL (8.4-10.2); Carbon Dioxide 24 mmol/L (22-29); Chloride 106 mmol/L (96-108); Creatinine Clr Calc Pharmacy 111.9; Estimated Glomerular Filt Rate > 60; Glucose Random 110 mg/dL (60-115); Potassium 3.7 mmol/L (3.3-5.1); Sodium 138 mmol/L (135-145); Total Protein 8.3 g/dL (6.5-8.0)
[2023-05-21 15:56] LABS: Basophils Absolute Auto 0.1 X10*3/uL (0.0-0.2); Basophils Percent Auto 0.6 % (0-2); Eosinophils Absolute Auto 0.4 X10*3/uL (0.0-0.4); Eosinophils Percent Auto 2.8 % (0-4); Hematocrit 40.8 % (42.0-52.0); Hemoglobin 13.6 g/dl (14.0-18.0); Imm Gran Abs Auto 0.04 X10*3/uL (0.00-0.03); Imm Gran Pct Auto 0.3 % (0.0-0.4); Lymphocytes Absolute Auto 0.9 X10*3/uL (1.2-4.9); Lymphocytes Percent Auto 6.6 % (20-40); Mean Corpuscular HGB Conc 33.3 g/dl (31.0-36.0); Mean Corpuscular Hemoglobin 26.7 pg (27.0-33.0); Mean Platelet Volume 11.2 fL (9.4-12.4); Monocytes Absolute Auto 0.3 X10*3/uL (0.1-1.2); Monocytes Percent Auto 2.2 % (2-11); Neutrophils Absolute Auto 12.3 x10*3/uL (2.0-8.3); Neutrophils Percent Auto 87.5 % (45-73); Platelet Count 301 X10*3/uL (160-400); Red Cell Distribution Width 13.2 % (11.0-16.0); White Blood Count 14.1 X10*3/uL (4.8-10.8)
--- NOTE | 2023-05-21 16:30 | PC.NURSE ---
report entered in computer, charge emiliana aware. tiger text has not been sent to this rn yet with more info
--- NOTE | 2023-05-21 17:07 | PC.NURSE ---
zuleymar called by this rn to check about admission- no tiger received yet about his bed assignment. this rn entered report. per sup jonnathan turcios PHOTOGRAPHY MANAGER will bring up when able
--- NOTE | 2023-05-21 18:00 | PC.NURSE ---
floor scretary came to poultry picker pt. no distress. used wheelchair.
[2023-05-21] MEDS: Albuterol/Iprat 2.5/0.5MG 3 ML AMPUL.NEB INHALE (20:02)
[2023-05-22] MEDS: 0.9 % Sodium Chloride Flush 3 ML SYRINGE IVFLUSH ×2 (00:40→09:04)
[2023-05-22 03:36] VITALS: BP 122/56; PULSE 98; RESP 18; TEMP 36.4; O2SAT 94
[2023-05-22] MEDS: methylPREDNISolone Sod Succ 40 MG/ML VIAL IVPUSH (04:46)
[2023-05-22 07:29] VITALS: BP 117/56; PULSE 76; RESP 14; TEMP 36.6; O2SAT 95
[2023-05-22] MEDS: Albuterol/Iprat 2.5/0.5MG 3 ML AMPUL.NEB INHALE (08:27)
[2023-05-22 08:28] VITALS: RESP 18
[2023-05-22] MEDS: Benzonatate 100 MG CAPSULE PO (09:25)
[2023-05-22 09:51] LABS: Adenovirus PCR Not Detected (Not Detect.); Bordetella parapertussis PCR Not Detected (Not Detect.); Bordetella pertussis PCR Not Detected (Not Detect.); Chlamydia pneumoniae PCR Not Detected (Not Detect.); Coronavirus 229E PCR Not Detected (Not Detect.); Coronavirus HKU1 PCR Not Detected (Not Detect.); Coronavirus NL63 PCR Not Detected (Not Detect.); Coronavirus OC43 PCR Not Detected (Not Detect.); Human metapneumovirus PCR Not Detected (Not Detect.); Influenza A PCR Not Detected (Not Detect.); Influenza B PCR Not Detected (Not Detect.); Mycoplasma pneumoniae PCR Not Detected (Not Detect.); Parainfluenza 1 PCR Not Detected (Not Detect.); Parainfluenza 2 PCR Not Detected (Not Detect.); Parainfluenza 3 PCR Not Detected (Not Detect.); Parainfluenza 4 PCR Not Detected (Not Detect.); RSV PCR Not Detected (Not Detect.); Rhino/Enterovirus PCR Detected (Not Detect.)
[2023-05-22 09:57] LABS: SARS-CoV-2 PCR Not Detected (Not Detect.)
--- NOTE | 2023-05-22 10:39 | MHC.CM.PN ---
pt lives with s/0 has no servies is indepedent has own ride dc plan home no servies
[2023-05-22 11:21] VITALS: PULSE 88; RESP 18; O2SAT 96
--- NOTE | 2023-05-22 11:25 | P.DS_ITS ---
DS: Providers Provider Date of Service: 05/22/23 Date of admission: 05/21/23 14:23 Date of discharge: 05/22/23 Primary care physician: Unknown Physician Attending physician on discharge: Federico Pagan Discharging clinician: Kelsey Brody DS: Diagnosis Discharge Diagnosis (1) Asthma: Status: Inactive DS: Summary Hospital Course Hospital Course: From H&P on the day of admission This is a 23-year-old male with history of mild intermittent asthma who presents to the emergency department with shortness of breath. Patient was seen in the emergency department on May 15 with similar symptoms was given a course of prednisone and discharged home. Patient reports shortness of breath with associated dry cough, sinus congestion, headache, sore throat. He denies any fever, chills. No recent sick contacts. His symptoms have not improved therefore he presented again today. Chest x-ray revealed no evidence of pneumonia RSV, flu, influenza negative. Throat swab negative for strep throat. Patient received breathing treatment steroids and IV magnesium but continued to feel short of breath and continued to have wheezing. In addition his oxygen saturations were on the low side, 88-90% and for this reason the decision was made to admit him overnight for observation and further management of acute asthma exacerbation. Exacerbation of mild intermittent asthma secondary to entero/rhino virus observed overnight and treated with systemic steroids and breathing treatments with significant improvement in his respiratory symptoms. Respiratory pathogen panel was obtained and he tested positive for entero/rhino virus. He is saturating in the high 90s on room air and was able to ambulate around the [place] without any shortness of breath. He will be discharged home to complete course of steroids. Time Attestation Discharge Coordination Time (in mins): 32 Quality: Safe Use of Opioids Does Pt have an Active Cancer Diagnosis on the Problem List?: No Quality: Stroke Does the patient have a stroke diagnosis?: No Physical Exam Vital Signs: Vital Signs: Last Vital Signs Temp 97.9 F 05/22/23 07:29 Pulse 88 05/22/23 11:21 Resp 18 05/22/23 11:21 BP 117/56 L 05/22/23 07:29 Pulse Ox 96 05/22/23 11:21 O2 Del Method Room Air 05/22/23 11:21 O2 Flow Rate 1 05/21/23 17:17 BMI result Body Mass Index 33.7 Const: General: cooperative, comfortable, no acute distress, alert and awake Nutritional Appearance: average body habitus Orientation/consciousness: patient oriented x3 Resp: Other: clear,good air entry Effort & Inspection: normal respiratory effort, able to speak in complete sentences, no respiratory distress and no use of accessory muscles Cardio: Rate: regular rate GI: Inspection: No distended Palpation (GI): Soft to palpation and nontender Neuro: General: patient oriented x3, moves all extremities and CN's II-XI intact bilaterally Extrem: General: Yes no pedal edema DS: Data Data Completed and Pending Labs on day of discharge: Laboratory Results - last 24 hr 05/21/23 05/21/23 05/21/23 10:39 15:15 19:21 WBC 14.1 H RBC 5.10 Hgb 13.6 L Hct 40.8 L MCV 80.0 MCH 26.7 L MCHC 33.3 RDW 13.2 Plt Count 301 MPV 11.2 Immature Gran % (Auto) 0.3 Neut % (Auto) 87.5 H Lymph % (Auto) 6.6 L Menard % (Auto) 2.2 Eos % (Auto) 2.8 Baso % (Auto) 0.6 Lymph # (Auto) 0.9 L Menard # (Auto) 0.3 Eos # (Auto) 0.4 Baso # (Auto) 0.1 Abs Immat Gran (auto) 0.04 H Absolute Neuts (auto) 12.3 H Absolute Nucleated RBC 0.000 Nucleated RBC % (auto) 0.0 Sodium 138 Potassium 3.7 Chloride 106 Carbon Dioxide 24 Anion Gap 12 BUN 11 Creatinine 0.97 Estim Creat Clear Calc 111.9 Estimated GFR > 60 Random Glucose 110 Calcium 9.6 Total Bilirubin 0.5 AST 43 H ALT 80 H Alkaline Phosphatase 119 H Total Protein 8.3 H Albumin 4.4 Respiratory Panel Cheung See Note Adenovirus (Rapid PCR) Not Detected B.pert (TEM-PCR) Not Detected B.parapertussis DNA PCR Not Detected C. pneumoniae DNA (PCR) Not Detected Coronavirus OC43 (PCR) Not Detected Coronavirus HKU1 (PCR) Not Detected Coronavirus 229E (PCR) Not Detected Coronavirus NL63 (PCR) Not Detected Human Metapneumovir PCR Not Detected Influenza A (RT-PCR) Not Detected Influenza Type A (PCR) NEGATIVE Influenza B (RT-PCR) Not Detected Influenza Type B (PCR) NEGATIVE M. pneumoniae (PCR) Not Detected Parainfluenza 1 (PCR) Not Detected Parainfluenza 2 (PCR) Not Detected Parainfluenza 3 (PCR) Not Detected Parainfluenza 4 (PCR) Not Detected RSV (PCR) Not Detected RSV RNA Qual (PCR) NEGATIVE Entero/Rhino (PCR) Detected A SARS-CoV-2 RNA (RT-PCR) NEGATIVE Not Detected Discharge Plan Discharge Anticipated Discharge Date/Time: 05/22/23 11:30 Patient Disposition: Home, Self-Care Discharge Diagnosis: Acute exacerbation of asthma Referrals: Physician,Unknown J [Primary Care Provider] - 2 days Discharge Medications: New prednisone 20 mg tablet 40 mg PO DAILY 5 Days Qty: 10 0RF albuterol sulfate 90 mcg/actuation aerosol powdr breath activated 2 inh inhalation Q4-6H PRN (Reason: shortness of breath or wheezing) Qty: 1 0RF Activity on Discharge: As tolerated Stand Alone Forms: Patient Portal Discharge page, Work/School Release Print Language: Ukrainian Activity Restrictions/Additional Instructions: Care Plan Goals: see below Health Concerns: acute asthma exacerbation entero/rhinovirus Plan of Treatment: complete course of steroids as prescribed use albuterol as needed for shortness of breath Return to the emergency department with any new or worsening symptoms Call to schedule follow-up appointment with your primary care provider as needed Assessment: see discharge summary Patient Instructions: Upper Respiratory Infection (ED), Wheezing (ED)
--- NOTE | 2023-05-22 12:09 | MHC.CM.PN ---
pt dcd home self care
--- NOTE | 2023-05-22 12:24 | PC.NURSE ---
Walked pt. on hallways, sats 96% RA, no distress or SOB reported or observed.
== END 2023-05-22 13:15 | disposition home or self-care (01) ==
LOC: HO.ED 13:39 → HO.EDOVER 14:41 → HO.S3 16:09
PROVIDERS: Physician Assistant; Admitting Provider Physician Assistant Medical; Emergency Provider Student in an Organized Health Care Education/Training Program; PCP Pediatrics; Visit Provider Physician Assistant Medical
DX: J45.21 Mild intermittent asthma with (acute) exacerbation (principal); R05.9 Cough, unspecified; R53.83 Other fatigue; R06.02 Shortness of breath; B00.1 Herpesviral vesicular dermatitis; Z79.899 Other long term (current) drug therapy; J06.9 Acute upper respiratory infection, unspecified; R51.9 Headache, unspecified; R09.81 Nasal congestion; Z11.52 Encounter for screening for COVID-19; Z20.828 Contact with and (suspected) exposure to other viral communicable diseases
CPT/HCPCS: 0241U; 36415; 71045; 80053; 85025; 87633; 87651; 94640; 96365; 96366; 96375; 96376; 99221; 99285; J1100; J2919; J2920; J3475

== ENCOUNTER → 2023-05-21 14:23 | Outpatient (BNV) | payer OTHER, SELFPAY | PROVIDERS: Admitting Provider Physician Assistant Medical; Emergency Provider Student in an Organized Health Care Education/Training Program; Visit Provider Physician Assistant Medical | DX: J45.21 Mild intermittent asthma with (acute) exacerbation (principal) | CPT/HCPCS: 99223; 99239 ==

== ENCOUNTER 2024-02-03 19:31 | Emergency (ER) | payer OTHER, SELFPAY ==
--- NOTE | ~2024-02-03 | US_ITS ---
EXAMINATION: US SCROTUM CLINICAL INFORMATION: Pain and swelling. COMPARISON: None available. TECHNIQUE: A sonogram of the scrotum was performed assessing tucker-scale appearance and color Doppler flow. Spectral Doppler analysis of the arterial and venous flow were performed in the testes bilaterally. FINDINGS: RIGHT: Right testicle measures 3.8 x 2.7 x 3 cm, volume 15.6 mL. No focal testicular parenchymal lesions are visualized. Spectral Doppler analysis of the arterial and venous flow is normal in the right testis. Right epididymis is slightly heterogeneous with mildly increased vascular flow which could indicate mild epididymitis. No right hydrocele or varicocele is seen. LEFT: Left testicle measures 4.4 x 2.6 x 3.8 cm, volume 22.7 mL. No focal testicular parenchymal lesions are visualized. Spectral Doppler analysis of the arterial and venous flow is normal in the left testis. Left epididymis is slightly heterogeneous with mildly increased vascular flow which could indicate mild epididymitis. No left hydrocele or varicocele is seen. US/US scrotum IMPRESSION: 1. Slightly heterogeneous right and left epididymis with mildly increased vascular flow, which could indicate mild epididymitis. 2. No testicular parenchymal lesion or evidence of torsion. Electronically signed by: Rony Chan MD 02/03/2024 10:17 PM EST
--- NOTE | ~2024-02-03 | US_ITS ---
EXAMINATION: US SCROTUM CLINICAL INFORMATION: Pain and swelling. COMPARISON: None available. TECHNIQUE: A sonogram of the scrotum was performed assessing tucker-scale appearance and color Doppler flow. Spectral Doppler analysis of the arterial and venous flow were performed in the testes bilaterally. FINDINGS: RIGHT: Right testicle measures 3.8 x 2.7 x 3 cm, volume 15.6 mL. No focal testicular parenchymal lesions are visualized. Spectral Doppler analysis of the arterial and venous flow is normal in the right testis. Right epididymis is slightly heterogeneous with mildly increased vascular flow which could indicate mild epididymitis. No right hydrocele or varicocele is seen. LEFT: Left testicle measures 4.4 x 2.6 x 3.8 cm, volume 22.7 mL. No focal testicular parenchymal lesions are visualized. Spectral Doppler analysis of the arterial and venous flow is normal in the left testis. Left epididymis is slightly heterogeneous with mildly increased vascular flow which could indicate mild epididymitis. No left hydrocele or varicocele is seen. US/US scrotum doppler IMPRESSION: 1. Slightly heterogeneous right and left epididymis with mildly increased vascular flow, which could indicate mild epididymitis. 2. No testicular parenchymal lesion or evidence of torsion. Electronically signed by: Rony Chan MD 02/03/2024 10:17 PM EST
--- NOTE | 2024-02-03 19:44 | ED.GENADULT ---
HPI - General Adult General Chief complaint: Urogenital-Male Stated complaint: genital pain Time Seen by Provider: 02/04/24 00:50 Source: patient Mode of arrival: ambulatory Limitations: no limitations History of Present Illness ED Provider: Dr. Jerri Downing HPI narrative: Patient comes to the emergency room complaining of bilateral testicular pain. Patient states it has been about 2 months, intermittent pain. Patient states that since yesterday it started hurting more, patient now has to walk with a wobbly gait because his scrotum hurts. Patient denies any hematuria or dysuria. Denies any concerns for STDs. Patient has been trying to control the pain at home with ibuprofen and Tylenol. Related Data Previous Rx's ?Medication ?Instructions ?Recorded albuterol sulfate 90 mcg/actuation 2 inh inhalation Q4-6H PRN 05/21/23 breath activated powder inhaler shortness of breath or wheezing #1 ea prednisone 20 mg tablet 40 mg (2 x 20 mg) PO DAILY 5 days 05/21/23 #10 tabs ketorolac 10 mg tablet 10 mg PO TID PRN pain #12 tabs 02/04/24 levofloxacin 500 mg tablet 500 mg PO DAILY #9 tabs 02/04/24 Allergies Allergy/AdvReac Type Severity Reaction Status Date / Time cat dander [CAT] Allergy Intermediate SNEEZING Verified 02/03/24 19:47 ITCHY EYES Review of Systems Review of Systems: Constitutional : No Weight loss, No Fever, No Chills, No Night Sweats, No Fatigue, No Malaise ENT/Mouth : No Hearing loss, No Ear Pain, No Nasal Congestion, No Sinus Pain, No Hoarseness, No sore throat, No Rhinorrhea, No Swallowing Difficulty Eyes: No Eye Pain, No Swelling, No Redness, No Foreign Body, No Discharge, No Vision Changes Cardiovascular : No Chest Pain, No SOB, No Dyspnea on Exertion, No Orthopnea, No Edema, No Palpitations Respiratory : No Cough, No Sputum, No Wheezing, No Smoke Exposure, No Dyspnea Gastrointestinal : No Nausea, No Vomiting, No Diarrhea, No Constipation, No abdominal Pain, No Hematochezia, No Melena Genitourinary : Complaining of bilateral scrotal pain No Dysuria, No Urinary Frequency, No Hematuria, No Urinary Incontinence, No Urgency, No Flank Pain, No Urinary Flow Changes, No Hesitancy Musculoskeletal : No joint pain, No Myalgias, No Joint Swelling Skin : No Skin Lesions, No rash Neuro : No Weakness, No Numbness, No Paresthesias, No Loss of Consciousness, No Dizziness, No Headache Psych : No Anxiety/Panic, No Depression, No SI/HI/AH/VH, No Social Issues, Heme/Lymph: No Bruising, No Bleeding,No Lymphadenopathy Endocrine : No Polyuria, No Polydipsia, No Temperature Intolerance [facility] Past Medical History Medical History (Updated 02/04/24 @ 01:13 by Jerri Downing MD) Eczema Asthma Asthma Social History Social History (Updated 05/21/23 @ 14:37 by LINDSAY Childs) Patient Tobacco Use Status: Current everyday Tobacco user Tobacco use type: Smokeless Tobacco e-Cigarette/Vaping Use: Currently Using Second Hand Smoke Exposure: No Advance Directives: No Advance Directives Information Provided: Yes Do you have a plan to hurt others: No Plan service: No Physical Exam ED Vital Signs: Vital Signs - 24 hr 02/03/24 19:45 02/04/24 00:15 Temperature 98.7 F 97.6 F Pulse Rate 75 73 Respiratory Rate 18 20 Blood Pressure 116/58 L 114/64 Pulse Oximetry 99 100 Oxygen Delivery Method Room Air Room Air BMI result Body Mass Index 33.9 Const Other: Appearance: Alert. Oriented X3. No acute distress. Eyes: Pupils equal, round and reactive to light. ENT: Pharynx normal. Neck: Normal inspection. Neck supple. No lymph nodes noted. No crepitus CVS: Normal heart rate and rhythm. Pulses normal. Normal S1 and S2 Respiratory: No respiratory distress. Breath sounds normal. No Wheezing. No rales Abdomen: Soft and nontender. No rigidity. No distention. : Patient has pain to palpation on bilateral testes, however, no obvious discoloration Skin: Patient has diffuse eczema patches and erythema head to toe Extremities: No lower extremity edema. No Lacerations. No Rash Neuro: Oriented X 3. No motor deficit. No sensory deficit. Moving all extremities. No slurred speech. CN 2 through 12 grossly intact Psych: calm, cooperative, normal affect Course Course Course Narrative: This is a rapid medical exam performed by George Brandon NP: Additional HPI, ROS, PE not included below will be deferred to primary provider. Patient is a 24-year-old male presenting to the ED with complaint of right groin pain. States that around 2 months ago he was doing a lot of heavy lifting, swapping a motor on a vehicle, it slipped and he attempted to save/brace it. Since that time has had right sided groin pain, swelling and discoloration. Denies difficulty urinating or abnormal penile discharge. Unable to visualize in triage due to privacy concerns. Plan: CT NG, UA, U/S Medical Decision Making Medical Decision Making [facility] Narrative: Ultrasound shows epididymitis, bilateral. Normal flow to both testes A serology urinalysis pending. Patient denies any concerns for STDs. Patient does not have UTI symptoms. Patient does have multiple open skin wounds some scratching due to eczema Differential Diagnosis Differential Diagnoses: The differential diagnosis associated with the presentation includes (Testicular torsion, epididymitis, femoral/inguinal hernia) Admission/Observation Consideration of admission/observation: Escalation of care including admission/observation considered (Given patient's presentation, observation has been considered) Lab Data [facility] Lab Attestation statement: I reviewed the patient's lab results. Labs: Lab Results 02/03/24 Range/Units 20:12 Urine Color Yellow Urine Appearance Cloudy Urine pH 6.5 (5.0-9.0) Ur Specific Sunshine >= 1.030 H (1.005-1.025) Urine Protein Trace (Neg-Trace) mg/dL Urine Glucose (UA) Negative (Negative) mg/dL Urine Ketones Trace (Negative) mg/dL Urine Blood Negative (Negative) Urine Nitrite Negative (Negative) Ur Leukocyte Esterase Negative (Negative) Independent Interpretation I performed an independent interpretation of an: Ultrasound Radiology Impression Radiologist Impression: RIGHT: Right testicle measures 3.8 x 2.7 x 3 cm, volume 15.6 mL. No focal testicular parenchymal lesions are visualized. Spectral Doppler analysis of the arterial and venous flow is normal in the right testis. Right epididymis is slightly heterogeneous with mildly increased vascular flow which could indicate mild epididymitis. No right hydrocele or varicocele is seen. LEFT: Left testicle measures 4.4 x 2.6 x 3.8 cm, volume 22.7 mL. No focal testicular parenchymal lesions are visualized. Spectral Doppler analysis of the arterial and venous flow is normal in the left testis. Left epididymis is slightly heterogeneous with mildly increased vascular flow which could indicate mild epididymitis. No left hydrocele or varicocele is seen. US/US scrotum doppler IMPRESSION: 1. Slightly heterogeneous right and left epididymis with mildly increased vascular flow, which could indicate mild epididymitis. 2. No testicular parenchymal lesion or evidence of torsion. Critical Care Time Critical Care Time Critical Care Time: Yes Total Critical Care Time: 35 Attestation: I have personally provided critical care time. Time includes review of lab data, radiology results, discussion with consultants, and monitoring for potential decompensation. Intervention performed as documented. Discharge Plan Discharge Clinical Impression: Acute epididymitis Patient Disposition: Home, Self-Care Instructions: Epididymitis (ED), Scrotal Pain (ED) Additional Instructions: Please follow-up with your primary care physician tomorrow. If you have any worsening or new symptoms, please return to the emergency room or call 911 Prescriptions: New levofloxacin 500 mg tablet 500 mg PO DAILY Qty: 9 0RF ketorolac 10 mg tablet 10 mg PO TID PRN (Reason: pain) Qty: 12 0RF No Action prednisone 20 mg tablet 40 mg PO DAILY 5 Days Qty: 10 0RF albuterol sulfate 90 mcg/actuation aerosol powdr breath activated 2 inh inhalation Q4-6H PRN (Reason: shortness of breath or wheezing) Qty: 1 0RF Stand Alone Forms: Work/School Release Print Language: Syriac
[2024-02-03 19:45] VITALS: BP 116/58; PULSE 75; RESP 18; TEMP 37.1; O2SAT 99; BMI 33.9
[2024-02-03 20:27] LABS: Appearance Urine Cloudy; Color Urine Yellow; Glucose Urine UA Negative (Negative); Leukocyte Esterase Urine Negative (Negative); Nitrite Urine Negative (Negative); PH 6.5 (5.0-9.0); Specific Gravity - Urine >= 1.030 (1.005-1.025); Urine Blood Negative (Negative); Urine Ketones Trace mg/dL (Negative); Urine Protein Trace mg/dL (Neg-Trace)
[2024-02-04 00:15] VITALS: BP 114/64; PULSE 73; RESP 20; TEMP 36.4; O2SAT 100
[2024-02-04] MEDS: Ketorolac Tromethamine 60 MG/2 ML VIAL IM (01:38)
[2024-02-04] MEDS: levoFLOXacin 500 MG TABLET PO (01:38)
[2024-02-04 02:00] VITALS: BP 114/64; PULSE 73; RESP 20; TEMP 36.4; O2SAT 100
[2024-02-04 06:42] LABS: CT PCR NOT DETECTED (Not Detect.); NG PCR NOT DETECTED (Not Detect.)
== END 2024-02-04 02:00 | disposition home or self-care (01) ==
PROVIDERS: Registered Nurse Emergency; Emergency Provider Emergency Medicine; PCP Pediatrics
DX: N45.1 Epididymitis (principal); N50.82 Scrotal pain
CPT/HCPCS: 76870; 81003; 87491; 87591; 93975; 96372; 99284; J1885

== ENCOUNTER 2024-02-05 16:24 | Emergency (ER) | payer OTHER, SELFPAY ==
--- NOTE | 2024-02-05 16:26 | ED_ITS ---
HPI - General Adult General Chief complaint: General Medical Stated complaint: Full body swelling and pain Time Seen by Provider: 02/05/24 17:55 Source: patient Mode of arrival: ambulatory Limitations: no limitations History of Present Illness ED Provider: Frankie De Paz PA-C HPI narrative: 24-year-old male history of eczema presents to the ED for generalized itchy rash and started taking Levaquin epididymitis. Patient states broke out into rash on any started taking Levaquin, but continue to take medication. Patient states this has been occurring for the past 2 days. Patient denies any shortness of breath, lip swelling, or sensation of throat closing. Related Data Previous Rx's ?Medication ?Instructions ?Recorded albuterol sulfate 90 mcg/actuation 2 inh inhalation Q4-6H PRN 05/21/23 breath activated powder inhaler shortness of breath or wheezing #1 ea prednisone 20 mg tablet 40 mg (2 x 20 mg) PO DAILY 5 days 05/21/23 #10 tabs ketorolac 10 mg tablet 10 mg PO TID PRN pain #12 tabs 02/04/24 levofloxacin 500 mg tablet 500 mg PO DAILY #9 tabs 02/04/24 diphenhydramine HCl 25 mg capsule 25 mg PO TID PRN allergic reaction 02/05/24 (Benadryl) #21 caps famotidine 40 mg tablet (Pepcid) 40 mg PO DAILY 7 days #7 tabs 02/05/24 prednisone 20 mg tablet 40 mg (2 x 20 mg) PO DAILY 5 days 02/05/24 #10 tabs sulfamethoxazole 800 1 tab PO BID 10 days #20 tabs 02/05/24 mg-trimethoprim 160 mg tablet (Bactrim DS) Allergies Allergy/AdvReac Type Severity Reaction Status Date / Time cat dander [CAT] Allergy Intermediate SNEEZING Verified 02/05/24 16:28 ITCHY EYES Review of Systems 2 Review of Systems: itchy rash after while taking levquin Yes all other systems are reviewed and are negative PMF Past Medical History Medical History (Updated 02/06/24 @ 00:00 by Jyoti Phillips) Eczema Asthma Asthma Social History Social History (Updated 05/21/23 @ 14:37 by LINDSAY Childs) Alcohol intake: current Alcohol intake frequency: holidays/special occasions only Patient Tobacco Use Status: Current everyday Tobacco user Tobacco use type: Smokeless Tobacco e-Cigarette/Vaping Use: Currently Using Second Hand Smoke Exposure: No Advance Directives: Yes Advance Directives on File: Yes Advance Directives Date on File: 05/23/23 Do you have a plan to hurt others: No Plan service: No Physical Exam ED Vital Signs: Vital Signs - 24 hr 02/05/24 16:27 02/05/24 18:00 02/05/24 19:56 Temperature 97.3 F 97.3 F Pulse Rate 80 102 H 102 H Respiratory Rate 19 16 16 Blood Pressure 119/69 143/86 H 143/86 H Pulse Oximetry 99 100 100 Oxygen Delivery Method Room Air Room Air Room Air BMI result Body Mass Index 36.6 Const General: cooperative, healthy appearing, comfortable, no acute distress, well developed, alert, awake and Physically active Orientation/consciousness: patient oriented x3 HENMT Other: Negative for any lip swelling or throat swelling Head: Yes normal to inspection, Yes No palpable skull fracture present, Yes normocephalic and Yes atraumatic Throat: Yes posterior oropharynx normal, Yes tonsils normal and Yes uvula midline Eyes General: appearance normal, both eyes and all related structures Neck Neck: Yes normal visual inspection, Yes full ROM, Yes no lymphadenopathy, Yes no meningeal signs, Yes trachea midline, Yes supple, No anterior neck swelling and No tender Chest Chest palpation & inspection: normal inspection of the chest and normal palpation of entire chest wall Resp Effort & Inspection: normal respiratory effort and able to speak in complete sentences Auscultation: clear to auscultation bilaterally Cardio Jugular venous distension: no JVD Heart sounds: S1 normal heart sound present and S2 normal heart sound present GI Inspection: Yes normal to inspection Palpation (GI): Soft to palpation, not firm, nontender, no guarding and not rigid General: Yes no CVA tenderness Back/Spine/Pelvis Back: no CVA tenderness and No back tenderness Skin Other: Positive for itchy Uticaria Neuro General: patient oriented x3, gait normal, tone normal, moves all extremities, Normal light touch and pain sensation, no meningeal signs, no focal motor deficits, CN's II-XI intact bilaterally and normal sensation to monofilament Extrem General: Yes normal to inspection, Yes full ROM and Yes capillary refill normal Psych Appearance: grossly normal, well kempt and not disheveled Course Course Course Narrative: This is a rapid medical exam performed by George Brandon NP: Additional HPI, ROS, PE not included below will be deferred to primary provider. Patient is a 24-year-old male presenting to the ED with complaint of pruritic erythema to arms and torso since he started levaquin for epididymitis on 02/02. Did not take any benadryl [employer]. No shortness of breath or difficulty breathing. Plan: benadryl ordered Medications Administered Discontinued Medications Generic Name Dose Route Start Last Admin Trade Name Freq PRN Reason Stop Dose Admin Diphenhydramine HCl 25 mg 02/05/24 16:29 02/05/24 16:45 Diphenhydramine Hcl 25 Mg Capsule PO 02/05/24 16:30 25 mg ONCE ONE Administration Diphenhydramine HCl 50 mg 02/05/24 18:00 02/05/24 18:21 Diphenhydramine Hcl 50 Mg/Ml Vial IVPUSH 02/05/24 18:01 50 mg ONCE ONE Administration Famotidine 20 mg 02/05/24 18:00 02/05/24 18:21 Famotidine/Pf 20 Mg/2 Ml Vial IVPUSH 02/05/24 18:01 20 mg ONCE ONE Administration Methylprednisolone Sodium Succinate 125 mg 02/05/24 18:00 02/05/24 18:21 Methylprednisolone Sod Succ 125 Mg/2 Ml Vial IVPUSH 02/05/24 18:01 125 mg ONCE ONE Administration Medical Decision Making Medical Decision Making MDM Narrative: 24-year-old male presents to ED for itchy rash after taking Levaquin. Patient is still to Levaquin today. Negative for signs of anaphylaxis. Patient given IV Benadryl Solu-Medrol and Pepcid. Levaquin can cause allergic rash, due to uticaria, and photosensitivity( skin). Patient informed to stop taking Levaquin will be given new antibiotic and discharged with Benadryl prednisone and Pepcid. Patient informed to follow up with primary care provider and dermatology. Not suspecting Benoit Stevie syndrome, Yue's syndrome, cellulitis, osteomyelitis, necrotizing fasciitis, meningitis,anaphyalix or any other life-threatening etiology. Differential Diagnosis Differential Diagnoses: The differential diagnosis associated with the presentation includes (Allergic reaction, eczema) Admission/Observation Consideration of admission/observation: Escalation of care including admission/observation considered Independent Historian Clinical information obtained from an independent historian. History obtained from or confirmed by: Other (Patient) External Record Review External record reviewed: Other (Prior visits) Prescription Management I considered prescription management with: Other (Benadryl prednisone Solu- Medrol) Discharge Plan Discharge Clinical Impression: Allergic reaction Patient Disposition: Home, Self-Care Instructions: Adverse Drug Reaction (ED), General Allergic Reaction (ED) Additional Instructions: Stopped taking levofloxacin. You will be discharged with Benadryl, prednisone, Pepcid another antibiotic. You will be given information to follow up with [facility] to manage eczema up, but symptoms most likely due to levofloxacin induced allergic reaction. Return to the ED immediately for any chest pain, shortness of breath, swelling of lips, swelling of tongue, worsening rash, fever, chills, skin peeling, or any other concerning symptoms. [facility], [address] [place] [address] [address], [place] [address], . [email or web address] Appointment can be made on web site. Prescriptions: New prednisone 20 mg tablet 40 mg PO DAILY 5 Days Qty: 10 0RF diphenhydramine HCl [Benadryl] 25 mg capsule 25 mg PO TID PRN (Reason: allergic reaction) Qty: 21 0RF famotidine [Pepcid] 40 mg tablet 40 mg PO DAILY 7 Days Qty: 7 0RF sulfamethoxazole-trimethoprim [Bactrim DS] 800-160 mg tablet 1 tab PO BID 10 Days Qty: 20 0RF No Action prednisone 20 mg tablet 40 mg PO DAILY 5 Days Qty: 10 0RF albuterol sulfate 90 mcg/actuation aerosol powdr breath activated 2 inh inhalation Q4-6H PRN (Reason: shortness of breath or wheezing) Qty: 1 0RF levofloxacin 500 mg tablet 500 mg PO DAILY Qty: 9 0RF ketorolac 10 mg tablet 10 mg PO TID PRN (Reason: pain) Qty: 12 0RF Stand Alone Forms: Work/School Release Interventions: ED Discharge Assessment Last Done: 02/05/24 19:56 Discharge Date/Time: 02/05/24 19:56 Print Language: Chilean
[2024-02-05 16:27] VITALS: BP 119/69; PULSE 80; RESP 19; O2SAT 99; BMI 36.6
[2024-02-05] MEDS: diphenhydrAMINE HCL 25 MG CAPSULE PO (16:45)
[2024-02-05 18:00] VITALS: BP 143/86; PULSE 102; RESP 16; TEMP 36.3; O2SAT 100
[2024-02-05] MEDS: Famotidine/PF 20 MG/2 ML VIAL IVPUSH (18:21)
[2024-02-05] MEDS: methylPREDNISolone Sod Succ 125 MG/2 ML VIAL IVPUSH (18:21)
[2024-02-05] MEDS: diphenhydrAMINE HCL 50 MG/ML VIAL IVPUSH (18:21)
[2024-02-05 19:56] VITALS: BP 143/86; PULSE 102; RESP 16; TEMP 36.3; O2SAT 100
== END 2024-02-05 19:56 | disposition home or self-care (01) ==
PROVIDERS: Emergency Provider Emergency Medicine Emergency Medical Services
DX: L50.0 Allergic urticaria (principal); Z79.899 Other long term (current) drug therapy; F17.210 Nicotine dependence, cigarettes, uncomplicated
CPT/HCPCS: 96374; 96375; 99283; 99284; J1200; J2919

== ENCOUNTER 2024-03-16 14:57 | Emergency (ER) | payer OTHER, SELFPAY ==
--- NOTE | 2024-03-16 16:07 | ED.GENADULT ---
HPI - General Adult General Chief complaint: Skin/Abscess/Foreign Body Stated complaint: Eczema flare Time Seen by Provider: 03/16/24 16:11 Source: patient Mode of arrival: ambulatory Limitations: no limitations History of Present Illness ED Provider: Nancy Escobar APRN HPI narrative: 24 yo male with history of eczema here with complaints of itching rash over arms, trunk and face. Patient reports he is on a wait list to see a cyber forensic specialist in [place]. Not currently using any medications to help with the rash. Is using [id number] Eucerin. Denies fevers, chills, flu-like symptoms. Related Data Previous Rx's ?Medication ?Instructions ?Recorded albuterol sulfate 90 mcg/actuation 2 inh inhalation Q4-6H PRN 05/21/23 breath activated powder inhaler shortness of breath or wheezing #1 ea prednisone 20 mg tablet 40 mg (2 x 20 mg) PO DAILY 5 days 05/21/23 #10 tabs ketorolac 10 mg tablet 10 mg PO TID PRN pain #12 tabs 02/04/24 levofloxacin 500 mg tablet 500 mg PO DAILY #9 tabs 02/04/24 diphenhydramine HCl 25 mg capsule 25 mg PO TID PRN allergic reaction 02/05/24 (Benadryl) #21 caps famotidine 40 mg tablet (Pepcid) 40 mg PO DAILY 7 days #7 tabs 02/05/24 prednisone 20 mg tablet 40 mg (2 x 20 mg) PO DAILY 5 days 02/05/24 #10 tabs sulfamethoxazole 800 1 tab PO BID 10 days #20 tabs 02/05/24 mg-trimethoprim 160 mg tablet (Bactrim DS) hydrocortisone 2.5 % topical cream 1 appl topical QID PRN rash #453.6 03/16/24 grams prednisone 20 mg tablet 60 mg (3 x 20 mg) PO BID #15 tabs 03/16/24 Allergies Allergy/AdvReac Type Severity Reaction Status Date / Time cat dander [CAT] Allergy Intermediate SNEEZING Verified 03/16/24 16:10 ITCHY EYES Review of Systems Review of Systems: Yes all other systems are reviewed and are negative Constitutional: Constitutional: Reports no additional constitutional complaints, Denies body ache(s), Denies chills, Denies fever(s), Denies headache(s) and Denies weakness Eyes: Eyes: Reports no additional eye complaints and Denies change in vision ENT: Reports system reviewed and no additional complaints, except as documented, Denies dizziness, Denies headache(s), Denies nasal congestion, Denies nasal discharge and Denies neck pain Cardiovascular: Cardiovascular: Reports no additional cardiovascular complaints, Denies chest pain, Denies leg edema and Denies dyspnea Respiratory: Respiratory: Reports no additional respiratory complaints, Denies cough and Denies dyspnea Gastrointestinal: Gastrointestinal: Reports no additional gastrointestinal complaints, Denies abdominal pain, Denies diarrhea, Denies nausea and Denies vomiting Genitourinary: Genitourinary: Denies urinary incontinence Musculoskeletal: Musculoskeletal: Reports no additional musculoskeletal complaints, Denies back pain, Denies arthralgias, Denies joint swelling, Denies neck pain, Denies numbness and Denies tingling Integumentary/Breasts: Skin/Breast: Reports system reviewed and no additional complaints, except as docu and Reports rash Neurologic: Reports system reviewed and no additional complaints, except as documented, Denies Abnormal speech present, Denies dizziness, Denies headache(s), Denies numbness, Denies tingling and Denies weakness PMFSH Past Medical History Attestation statement: The following information was validated with the patient. Source: old records reviewed and nursing notes reviewed Medical History Eczema Asthma Asthma Social History Social History Alcohol intake: current Alcohol intake frequency: holidays/special occasions only Patient Tobacco Use Status: Current everyday Tobacco user Tobacco use type: Smokeless Tobacco e-Cigarette/Vaping Use: Currently Using Second Hand Smoke Exposure: No Advance Directives: Yes Advance Directives on File: Yes Advance Directives Date on File: 05/23/23 service: No Physical Exam ED Vital Signs: Vital Signs - 24 hr 03/16/24 16:08 03/16/24 16:22 Temperature 98.0 F 98.0 F Pulse Rate 75 75 Respiratory Rate 18 18 Blood Pressure 118/54 L 118/54 L Pulse Oximetry 100 100 Oxygen Delivery Method Room Air Room Air BMI result Body Mass Index 35.4 Const General: cooperative, healthy appearing, comfortable and no acute distress Orientation/consciousness: patient oriented x3 Limitations: no limitations [facility] Head: Yes normal to inspection Ears: hearing grossly normal bilaterally General nose exam: Normal external nose present Face and sinus: Yes normal facial exam Mouth: Normal oral and palatal mucosa present Throat: Yes posterior oropharynx normal Eyes General: appearance normal, both eyes and all related structures Pupils: Equal, round and reactive pupils present Neck Neck: Yes normal visual inspection Chest Chest palpation & inspection: normal inspection of the chest Resp Effort & Inspection: normal respiratory effort Auscultation: clear to auscultation bilaterally Cardio Rate: regular rate Rhythm: regular rhythm Peripheral pulses: Peripheral pulses 2+ throughout GI Inspection: Yes normal to inspection Palpation (GI): Soft to palpation and nontender Auscultation: normal bowel sounds Back/Spine/Pelvis Thoracic/Lumbar Spine: thoracic and lumbar spine normal to inspection Skin Other: There is a diffuse rash noted over the trunk, upper and lower extremities and over the periorbital area. The area is blanchable. Non sloughing. It is more focal around the flexor surfaces. Neuro General: patient oriented x3, no focal motor deficits and normal sensation to monofilament Cranial nerves: Yes Equal, round and reactive pupils present Cognition (Neuro): normal cognition Speech: No Abnormal speech present Gait exam (Neuro): Normal gait present Motor exam (neuro): 5/5 motor strength present throughout Extrem General: Yes normal to inspection Medical Decision Making Medical Decision Making MDM Narrative: 24 yo male with history of eczema here with complaints of itching rash over arms, trunk and face. Patient reports he is on a wait list to see a cyber forensic specialist in [place]. Not currently using any medications to help with the rash. Is using [id number] Eucerin. Denies fevers, chills, flu-like symptoms. There is a diffuse rash noted over the trunk, upper and lower extremities and over the periorbital area. The area is blanchable. Non sloughing. It is more focal around the flexor surfaces. This is consistent with atopic dermatitis. Patient will be treated with prednisone course, topical hydrocortisone with recommendations to continue to follow-up with dermatology. We did discuss home care for atopic dermatitis. Reviewed worrisome signs and symptoms of when to return to the emergency room. Comfortable plan for discharge home. Differential Diagnosis Differential Diagnoses: The differential diagnosis associated with the presentation includes Atopic dermatitis Low suspicion for superimposed cellulitis, SJS, TEN, dress syndrome, STI Admission/Observation Consideration of admission/observation: Escalation of care including admission/observation considered Prescription Management I considered prescription management with: Antibiotic Chronic Conditions Patient?s care impacted by: Other (atopic dertmatitis ) Discharge Plan Discharge Clinical Impression: Atopic dermatitis Patient Disposition: Home, Self-Care Instructions: Dermatitis (ED) Additional Instructions: Limit bathing Use lukewarm water Continue Eucerin Continue with plan to follow up with Dermatology Prescriptions: New prednisone 20 mg tablet 60 mg PO BID Qty: 15 0RF hydrocortisone 2.5 % cream 1 appl topical QID PRN (Reason: rash) Qty: 453.6 0RF No Action prednisone 20 mg tablet 40 mg PO DAILY 5 Days Qty: 10 0RF albuterol sulfate 90 mcg/actuation aerosol powdr breath activated 2 inh inhalation Q4-6H PRN (Reason: shortness of breath or wheezing) Qty: 1 0RF levofloxacin 500 mg tablet 500 mg PO DAILY Qty: 9 0RF ketorolac 10 mg tablet 10 mg PO TID PRN (Reason: pain) Qty: 12 0RF prednisone 20 mg tablet 40 mg PO DAILY 5 Days Qty: 10 0RF diphenhydramine HCl [Benadryl] 25 mg capsule 25 mg PO TID PRN (Reason: allergic reaction) Qty: 21 0RF famotidine [Pepcid] 40 mg tablet 40 mg PO DAILY 7 Days Qty: 7 0RF sulfamethoxazole-trimethoprim [Bactrim DS] 800-160 mg tablet 1 tab PO BID 10 Days Qty: 20 0RF Stand Alone Forms: Work/School Release Interventions: ED Discharge Assessment Last Done: 03/16/24 16:22 Discharge Date/Time: 03/16/24 16:25 Print Language: Faroese
[2024-03-16 16:08] VITALS: BP 118/54; PULSE 75; RESP 18; TEMP 36.7; O2SAT 100; BMI 35.4
--- OUTSIDE RECORDS SUMMARY | 2024-03-16 16:13 | XMS_ITS | Clinical Summary ---
Author Organization [facility] [address] [facility] Address [address] [place] [address] Phone Care Team Providers Care Rn Recovery Name Role Phone Antelmo Xavier MD Primary Care Provider Allergies Active Allergy Reactions Criticality Noted Date Comments Cat Dander 02/20/2024 Levofloxacin Rash 02/20/2024 Medications Medication Sig Dispensed Refills Start Date End Date Status sulfamethoxazole- trimethoprim (BACTRIM DS,SEPTRA DS) 800-160 mg per tablet Take 1 tablet by mouth 2 (two) times a day. for 10 days 02/05/2024 Active predniSONE (DELTASONE) 20 mg tablet Take 3 tabs daily x3 days, then take 2 tabs daily x3 days, then take 1 tab daily for 3 day 18 each 02/20/2024 Active fexofenadine (JOSELINE) 180 mg tablet Take 1 tablet (180 mg total) by mouth 1 (one) time each day. 30 tablet 2 02/20/2024 Active loratadine (CLARITIN) 10 mg tablet Take 1 tablet (10 mg total) by mouth 1 (one) time each day. 30 each 2 02/20/2024 Active hydrOXYzine HCL (ATARAX) 10 mg tablet Take 1 tablet (10 mg total) by mouth 3 (three) times a day if needed for itching. 60 tablet 02/20/2024 Active Banophen 25 mg capsule TAKE 1 CAPSULE BY MOUTH 3 TIMES A DAY NEEDED FOR ALLERGIC REACTION 02/05/2024 02/20/2024 Discontinued (Therapy completed) famotidine (PEPCID) 40 mg tablet Take 1 tablet (40 mg total) by mouth 1 (one) time each day. for 7 days 02/05/2024 02/20/2024 Discontinued (Therapy completed) ketorolac (TORADOL) 10 mg tablet TAKE 1 TABLET BY MOUTH UP TO 3 TIMES A DAY NEEDED FOR PAIN FOR NO MORE THAN 5 DAYS. 02/04/2024 02/20/2024 Discontinued (Therapy completed) levoFLOXacin (LEVAQUIN) 500 mg tablet Take 1 tablet (500 mg total) by mouth 1 (one) time each day. 02/04/2024 02/20/2024 Discontinued (Allergic response) predniSONE (DELTASONE) 20 mg tablet Take 2 tablets (40 mg total) by mouth 1 (one) time each day. for 5 days 02/05/2024 02/20/2024 Discontinued (Therapy completed) Active Problems Problem Noted Date Diagnosed Date Obesity (BMI 30-39.9) 02/20/2024 Encounters Date Type Department Care Team Description 03/15/2024 Telephone Adult Medicine [address] [phone] Antelmo Xavier MD Ezcema; Rash 02/28/2024 Telephone Adult Medicine [address] [phone] Lulu Shirley PA 02/20/2024 11:00 AM EST Office Visit Adult Medicine [address] [phone] Lulu Shirley PA Encounter to establish care (Primary Dx); Need for hepatitis C screening test; Encounter for screening for lipid disorder; Screening for HIV (human immunodeficiency virus); Allergic reaction to drug, initial encounter; Epididymitis 02/14/2024 Telephone Adult Medicine [address] [phone] Antelmo Xavier MD Hospital Follow-up 01/24/2024 Telephone Adult Medicine [address] [phone] Antelmo Xavier MD from Last 3 Months Medical History Medical History Date Comments Obesity Family History Medical History Relation Name Comments No Known Problems Daughter No Known Problems Father No Known Problems Maternal Grandfather No Known Problems Maternal Grandmother No Known Problems Mother No Known Problems Paternal Grandfather No Known Problems Paternal Grandmother No Known Problems Sister Relation Name Status Comments Daughter Alive Father Alive Maternal Grandfather Alive Maternal Grandmother Alive Mother Alive Paternal Grandfather Alive Paternal Grandmother Alive Sister Alive Social History Tobacco Use Types Packs/Day Years Used Date Smoking Tobacco: Never Passive Smoke Exposure: Never Smokeless Tobacco: Never Tobacco Cessation:Counseling Given: Not Answered Alcohol Use Standard Drinks/Week Comments Not Currently 0 (1 standard drink = 0.6 oz pur e alcohol) Sex and Gender Information Value Date Recorded Sex Assigned at Male 03/01/2024 1:41 PM EST Gender Identity Male 03/01/2024 1:41 PM EST Sexual Orientation Not on file Job Start Date Occupation Industry Not on file Not on file Not on file Obstetrics History Last Filed Vital Signs Vital Sign Reading Time Taken Comments Blood Pressure 120/60 02/20/2024 11:04 AM EST Pulse 77 02/20/2024 11:04 AM EST Temperature 37 ??C (98.6 ??F) 02/20/2024 11: 04 AM EST Respiratory Rate 16 02/20/2024 11:0 4 AM EST Oxygen Saturation - - Inhaled Oxygen Concentration - - Weight 86.1 kg (189 lb 14.4 oz) 025 11:04 AM EST Height 157.5 cm (5' 2 ) 02/20/2024 11:0 4 AM EST Body Mass Index 34.73 02/20/2024 11:04 AM EST Plan of Treatment Upcoming Encounters Date Type Department Care Team (Late st Contact Info) Description 05/21/2024 11:30 AM EDT Office Visit Adult Medicine [address] [phone] Lulu Shirley PA [address] [place], [place] Health Maintenance Due Date Last Done Comments Pneumococcal Vaccine: Pediatrics (0 to 5 Years) and At-Risk Patients (6 to 64 Years) (1 of 1 - PPSV23 or PCV20) 02/02/2006 05/09/2001, 05/09/2001, 2000, Additional history exists COVID-19 Vaccine ( season) 2023 Influenza Vaccine (#1) 2023 8, 03/13/2015, 03/02/2013, Additional history exists Social Influencers of Health Screening 01/25/2024 Depression Screening 07/05/2024 07/06/2023 DTaP,Tdap,and Td Vaccines (8 - Td or Tdap) 12/11/2027 12/10/2017, 02/18/2012, 04/22/2004, Additional history exists Cholesterol Screening (Lipid Panel) 02/26/2029 02/27/2024, 02/27/2024 Hepatitis B Vaccines Completed 2000, 2000, 2000 HIB Vaccines Completed 05/09/2001, 02/2000, 2000, Additional history exists MMR Vaccines Completed 04/22/2004, 03/14/2001 Varicella Vaccines Completed 01/25/2008, 03/14/2001 IPV Vaccines Completed 09/29/2011, 10/2004, 09/28/2001, Additional history exists Hepatitis A Vaccines Completed 03/02/2013, 01/23/20 HPV Vaccines Completed 07/03/2013, 02/14, 02/18/2012 Meningococcal ACWY Vaccine Completed 10/27/2017, HIV Screening Completed 02/27/2024 Hepatitis C Screening Completed 02/27/2024 RSV Immunization Patients Under 20 months Aged Out No longer eligible based on patient's age to complete this topic Procedures Procedure Name Priority Date/Time Associated Diagnosis Comments LDL CHOLESTEROL, DIRECT Routine 02/27/2024 1:55 PM EST Encounter for screening for lipid disorder CBC WITH AUTO DIFFERENTIAL Routine 02/27/2024 1:55 PM EST Allergic reaction to drug, initial encounter COMPREHENSIVE METABOLIC PANEL Routine 02/27/2024 1:55 PM EST Allergic reaction to drug, initial encounter LIPID PANEL WITH REFLEX TO DIRECT LDL Routine 02/27/2024 1:55 PM EST Encounter for screening for lipid disorder HIV 1, 2 ANTIBODY, P24 ANTIGEN WITH REFLEX TO DIFFERENTIATION Routine 02/27/2024 1:55 PM EST Screening for HIV (human immunodeficiency virus) HEPATITIS C ANTIBODY Routine 02/27/2024 1:55 PM EST Need for hepatitis C screening test CBC AND DIFFERENTIAL Routine 02/27/2024 1:55 PM EST Allergic reaction to drug, initial encounter CHLAMYDIA TRACHOMATIS AND NEISSERIA GONORRHOEAE PCR Routine 02/27/2024 1:55 PM EST Epididymitis from Last 3 Months Results * Hepatitis C antibody (02/27/2024 1:55 PM EST) Hepatitis C Antibody Negative Negative LAB CHEMISTRY METHOD 02/27/2024 9:44 PM EST [facility] Blood Venous blood specimen / Unknown Venipuncture / Unknown 02/27/2024 1:55 PM EST 02/27/2024 1:55 PM EST Lulu Casper [facility] LAB BLOOD ORDERABLES [facility] [address] [place] [address], * HIV 1,2 antibody, p24 antigen with reflex to differentiation (02/27/2024 1:55 PM EST) Pathologist [facility] HIV Combo AB/AG Negative Negative LAB CHEMISTRY METHOD 02/27/2024 9:44 PM EST [facility] Blood Venous blood specimen / Unknown Venipuncture / Unknown 02/27/2024 1:55 PM EST 02/27/2024 1:55 PM EST Narrative [facility] - 02/27/2024 9:44 PM EST This assay is a 4th generation assay allowing for earlier detection of HIV infection by detecting the presence of the HIV-1 p24 antigen as well as the traditional antibodies to HIV type 1 (including group O) and type 2. ??Use of a 4th generation assay is the current CDC recommendation for HIV screening. Lulu Casper [facility] LAB BLOOD ORDERABLES [facility] [address] [place] [address], * (ABNORMAL) Lipid panel with reflex to direct LDL (02/27/2024 1:55 PM EST) [facility] Signature Cholesterol 189 0 - 200 mg/dL LAB CHEMISTRY METHOD 02/27/2024 7:12 PM EST [facility] Triglycerides 509(H) 0 - 150 mg/dL LAB CHEMISTRY METHOD 02/27/2024 7:12 PM [facility] HDL 52 >=40 mg/dL LAB CHEMISTRY METHOD 02/27/2024 7:12 PM [facility] LDL Calculated LAB CHEMISTRY METHOD 02/27/2024 7:12 PM [facility] Comment: Unable to calculate when triglycerides >400 mg/dL. Triglyceride value is >= 500. ??Calculated LDL is not meaningful. ??Direct LDL has been added. VLDL Cholesterol Remi LAB CHEMISTRY METHOD 02/27/2024 7:12 PM EST [facility] Comment:Unable to calculate when triglycerides >400 mg/dL. Non HDL Chol. (LDL+VLDL) LAB CHEMISTRY METHOD 02/27/2024 7:12 PM [facility] Comment:Unable to calculate when triglycerides >400 mg/dL. Chol/HDL Ratio 3.6 0.0 - 4.4 LAB CHEMISTRY METHOD 02/27/2024 7:12 PM [facility] Blood Venous blood specimen / Unknown Venipuncture / Unknown 02/27/2024 1:55 PM EST 02/27/2024 1:55 PM EST Lulu Casper [facility] LAB BLOOD ORDERABLES Performing Organization Address City/[facility]/ZIP Co de Phone Number [facility] [address] [place] [address], * (ABNORMAL) CBC auto differential (02/27/2024 1:55 PM EST) [facility] WBC 14.8(H) 4.8 - 10.8 K/mcL LAB HEMETOLOGY METHOD 02/27/2024 4:49 PM [facility] RBC 4.70 4.50 - 5.50 M/mcL LAB HEMETOLOGY METHOD 02/27/2024 4:49 PM [facility] Hemoglobin 12.7(L) 13.5 - 17.5 g/dL LAB HEMETOLOGY METHOD 02/27/2024 4:49 PM [facility] Hematocrit 40.9(L) 42.0 - 54.0 % LAB HEMETOLOGY METHOD 02/27/2024 4:49 PM [facility] MCV 87.0 79.0 - 98.0 FL LAB HEMETOLOGY METHOD 02/27/2024 4:49 PM [facility] MCH 27.0 27.0 - 32.0 pcg LAB HEMETOLOGY METHOD 02/27/2024 4:49 PM [facility] MCHC 31.1(L) 32.0 - 37.0 g/dL LAB HEMETOLOGY METHOD 02/27/2024 4:49 PM [facility] RDW 14.0 11.0 - 15.0 % LAB HEMETOLOGY METHOD 02/27/2024 4:49 PM [facility] Platelets 411(H) 130 - 400 K/mcL LAB HEMETOLOGY METHOD 02/27/2024 4:49 PM [facility] MPV 10.2 7.0 - 11.0 FL LAB HEMETOLOGY METHOD 02/27/2024 4:49 PM [facility] NRBC 0.0 <1.0 % LAB HEMETOLOGY METHOD 02/27/2024 4:49 PM [facility] NRBC Absolute 0.00 <0.10 K/mcL LAB HEMETOLOGY METHOD 02/27/2024 4:49 PM [facility] Neutrophils Relative 70.7 % LAB HEMETOLOGY METHOD 02/27/2024 4:49 PM [facility] Lymphocytes Relative 17.1 % LAB HEMETOLOGY METHOD 02/27/2024 4:49 PM [facility] Monocytes Relative 9.9 % LAB HEMETOLOGY METHOD 02/27/2024 4:49 PM [facility] Eosinophils Relative 1.5 % LAB HEMETOLOGY METHOD 02/27/2024 4:49 PM [facility] Basophils Relative 0.3 % LAB HEMETOLOGY METHOD 02/27/2024 4:49 PM [facility] Immature Granulocytes Relative 0.5 % LAB HEMETOLOGY METHOD 02/27/2024 4:49 PM [facility] Neutrophils Absolute 10.47(H) 1.50 - 7.00 K/mcL LAB HEMETOLOGY METHOD 02/27/2024 4:49 PM [facility] Lymphocytes Absolute 2.54 1.00 - 5.00 K/mcL LAB HEMETOLOGY METHOD 02/27/2024 4:49 PM [facility] Monocytes Absolute 1.47(H) 0.20 - 1.00 K/mcL LAB HEMETOLOGY METHOD 02/27/2024 4:49 PM [facility] Eosinophils Absolute 0.23 0.00 - 0.50 K/mcL LAB HEMETOLOGY METHOD 02/27/2024 4:49 PM [facility] Basophils Absolute 0.05 0.00 - 0.20 K/mcL LAB HEMETOLOGY METHOD 02/27/2024 4:49 PM [facility] Immature Granulocytes Absolute 0.08(H) 0.00 - 0.03 K/mcL LAB HEMETOLOGY METHOD 02/27/2024 4:49 PM EST [facility] Blood Venous blood specimen / Unknown Venipuncture / Unknown 02/27/2024 1:55 PM EST 02/27/2024 1:55 PM EST Lulu Csaper [facility] LAB BLOOD ORDERABLES [facility] [address] [place] [address], [place] [phone] * Chlamydia trachomatis and Neisseria gonorrhoeae molecular study (02/27/2024 1:55 PM EST) Pathologist [facility] Neisseria gonorrhoeae PCR Negative Negative LAB MOLECULAR DIAGNOSTICS METHOD 02/28/2024 8:52 AM EST [facility] Chlamydia trachomatis PCR Negative Negative LAB MOLECULAR DIAGNOSTICS METHOD 02/28/2024 8:52 AM EST [facility] Swab Urine specimen / Unknown Non-blood Collection / Unknown 02/27/2024 1:55 PM EST 02/27/2024 1:55 PM EST Lulu Casper [facility] LAB MICROBIOLOGY - G ENERAL ORDERABLES Performing Organization Address City/[facility]/ZIP Co de Phone Number [facility] [address] [place] [address], [place] [phone] * LDL cholesterol, direct (02/27/2024 1:55 PM EST) Pathologist [facility] LDL Direct 87 <=100 mg/dL LAB CHEMISTRY METHOD 02/27/2024 7:23 PM EST [facility] Blood Venous blood specimen / Unknown Venipuncture / Unknown 02/27/2024 1:55 PM EST 02/27/2024 1:55 PM EST Lulu Casper [facility] LAB BLOOD ORDERABLES [facility] [address] [place] [address], [place] [phone] * (ABNORMAL) Comprehensive metabolic panel (02/27/2024 1:55 PM EST) Sodium 136 133 - 145 mmol/L LAB CHEMISTRY METHOD 02/27/2024 6:57 PM [facility] Potassium 3.4(L) 3.5 - 5.5 mmol/L LAB CHEMISTRY METHOD 02/27/2024 6:57 PM [facility] Chloride 99 96 - 110 mmol/L LAB CHEMISTRY METHOD 02/27/2024 6:57 PM [facility] CO2 30 21 - 32 mmol/L LAB CHEMISTRY METHOD 02/27/2024 6:57 PM [facility] Anion Gap 7 3 - 11 LAB CHEMISTRY METHOD 02/27/2024 6:57 PM [facility] Glucose 92 70 - 100 mg/dL LAB CHEMISTRY METHOD 02/27/2024 6:57 PM [facility] BUN 14 5 - 25 mg/dL LAB CHEMISTRY METHOD 02/27/2024 6:57 PM [facility] Creatinine 0.92 0.70 - 1.30 mg/dL LAB CHEMISTRY METHOD 02/27/2024 6:57 PM [facility] eGFR 119 >=60 mL/min/1. 73m2 LAB CHEMISTRY METHOD 02/27/2024 6:57 PM [facility] Comment:Calculation based on the??Chronic Kidney Disease Epidemiology Collaboration (CKD-EPI) equation refit??without adjustment for race. BUN/Creatinine Ratio 15.2 LAB CHEMISTRY METHOD 02/27/2024 6:57 PM [facility] Calcium 9.5 8.5 - 10.5 mg/dL LAB CHEMISTRY METHOD 02/27/2024 6:57 PM [facility] AST (SGOT) 19 10 - 42 unit/L LAB CHEMISTRY METHOD 02/27/2024 6:57 PM [facility] ALT (SGPT) 58 10 - 60 unit/L LAB CHEMISTRY METHOD 02/27/2024 6:57 PM EST [facility] Alkaline Phosphatase 92 42 - 121 unit/L LAB CHEMISTRY METHOD 02/27/2024 6:57 PM EST [facility] Total Protein 7.4 6.0 - 8.0 g/dL LAB CHEMISTRY METHOD 02/27/2024 6:57 PM EST [facility] Albumin 4.1 3.2 - 5.0 g/dL LAB CHEMISTRY METHOD 02/27/2024 6:57 PM [facility] Total Bilirubin 0.3 0.0 - 1.4 mg/dL LAB CHEMISTRY METHOD 02/27/2024 6:57 PM [facility] Blood Venous blood specimen / Unknown Venipuncture / Unknown 02/27/2024 1:55 PM EST 02/27/2024 1:55 PM EST Lulu Casper [facility] LAB BLOOD ORDERABLES [facility] [address] [place] [address], from Last 3 Months Care Teams Rn Recovery Relationship Specialty Start Date End Date Antelmo Xavier MD [address] [place] [address] PCP - General Internal Medicine 01/24/24
--- OUTSIDE RECORDS SUMMARY | 2024-03-16 16:14 | XMS_ITS | Encounter Summary ---
Author Organization [facility] Address [address] [place] [address] Care Team Providers Care Embossing Machine Tender Name Role Phone Antelmo Xavier MD Primary Care Provider Reason for Visit * Reason Comments Follow[place] [facility] [place] Encounter Details Date Type Department Care Team (Late st Contact Info) Description 02/20/2024 11:00 AM EST Office Visit Adult Medicine [facility] [address] [place], [place] [phone] Lulu Shirley PA [address] [place], [place] Encounter to establish care (Primary Dx); Need for hepatitis C screening test; Encounter for screening for lipid disorder; Screening for HIV (human immunodeficiency virus); Allergic reaction to drug, initial encounter; Epididymitis Social History Tobacco Use Types Packs/Day Years [...] file Not on file Not on file documented as of this encounter Last Filed Vital Signs Vital Sign Reading [...] Mass Index 34.73 02/20/2024 11:04 AM EST documented in this encounter Ordered Prescriptions Prescription Sig Dispensed Refills Start Date End Da te hydrOXYzine HCL (ATARAX) 10 mg tablet Take 1 tablet (10 mg total) by mouth 3 (three) times a day if needed for itching. 60 tablet 02/20/2024 loratadine (CLARITIN) 10 mg tablet Take 1 tablet (10 mg total) by mouth 1 (one) time each day. 30 each 2 02/20/2024 fexofenadine (MORIAH) 180 mg tablet Take 1 tablet (180 mg total) by mouth 1 (one) time each day. 30 tablet 2 02/20/2024 predniSONE (DELTASONE) 20 mg tablet Take 3 tabs daily x3 days, then take 2 tabs daily x3 days, then take 1 tab daily for 3 day 18 each 02/20/2024 documented in this encounter Progress Notes * LINDSAY Gaffney - 02/20/2024 11:00 AM EST CHIEF COMPLAINT: Follow[place]up [place] [place] IDENTIFIER: Dwayne Kaye is a 24 y.o. old male. HPI: Patient is a 24-year-old male who presents to the office today for ER follow-up, to establish care.He is transferring from a PCP in [place], [facility] transfer records. He is accompanied by his girlfriend Kelly. He presented to [facility] on 02/05/2024 complaining of generalized itchy rash on the arms and torso after taking Levaquin for epididymitis 02/04/2024. He did not stop taking the antibiotic despite the rash. No anaphylaxis. He was given IV Benadryl Solu- Medrol and Pepcid. He was advisedto stop taking Levaquin and was given Bactrim BID x 10 days instead. He was discharged with Benadryl 25 mg PRN, prednisone 40 mg x 5 days and Pepcid 40 mg daily x 7 days. He presented to [facility] the day prior complaining of bilateral testicular pain. Urinalysis was negative. STD testing was not completed. Patient reports that the prednisone offered temporary relief but came back. He feels like he is onfire . He has an erythematous rash mostly on bilateral arms, abdomen. More faint rash on the back, lower legs. He denies any difficulty breathing, tongue swelling, oral ulcers/mucous involvement, throat closing. He has been taking Bactrim when he remembers. The epididymitis is improved. ROS: GENERAL: No malaise, significant weight loss or fever HEENT: No changes in hearing or vision, nose bleeds or other nasal problems NECK: No lumps, goiter, pain or significant neck swelling RESPIRATORY: No cough, wheezing or shortness of breath CARDIOVASCULAR: No chest pain, leg swelling or palpitations GI: No abdominal discomfort, blood in stools or black stools : No dysuria, frequency or incontinence SKIN: See HPI NEURO: No numbness PAST MEDICAL HISTORY: Patient Active Problem List Diagnosis Date Noted Obesity (BMI 30-39.9) 02/20/2024 History reviewed. No pertinent surgical history. SOCIAL HISTORY: Social History Tobacco Use Smoking status: Never Passive exposure: Never Smokeless tobacco: Never Substance Use Topics Alcohol use: Not Currently FAMILY HISTORY: Family History Problem Relation Name Age of Onset No Known Problems Mother No Known Problems Father No Known Problems Sister No Known Problems Daughter No Known Problems Maternal Grandmother No Known Problems Maternal Grandfather No Known Problems Paternal Grandmother No Known Problems Paternal Grandfather MEDICATIONS DISCONTINUED/REORDERED: Medications Discontinued During This Encounter Medication Reason predniSONE (DELTASONE) 20 mg tablet Therapy completed levoFLOXacin (LEVAQUIN) 500 mg tablet Allergic response famotidine (PEPCID) 40 mg tablet Therapy completed ketorolac (TORADOL) 10 mg tablet Therapy completed Banophen 25 mg capsule Therapy completed ACTIVE MEDICATIONS: Outpatient Medications Marked as Taking for the 02/20/24 encounter (Office Visit) with LINDSAY Gaffney Medication Sig Dispense Refill sulfamethoxazole-trimethoprim (BACTRIM DS,SEPTRA DS) 800-160 mg per tablet Take 1 tablet by mouth 2(two) times a day. for 10 days [DISCONTINUED] Banophen 25 mg capsule TAKE 1 CAPSULE BY MOUTH 3 TIMES A DAY NEEDED FOR ALLERGIC REACTION [DISCONTINUED] famotidine (PEPCID) 40 mg tablet Take 1 tablet (40 mg total) by mouth 1 (one) time each day. for 7 days [DISCONTINUED] ketorolac (TORADOL) 10 mg tablet TAKE 1 TABLET BY MOUTH UP TO 3 TIMES A DAY NEEDED FOR PAIN FOR NO MORE THAN 5 DAYS. [DISCONTINUED] levoFLOXacin (LEVAQUIN) 500 mg tablet Take 1 tablet (500 mg total) by mouth 1 (one) time each day. [DISCONTINUED] predniSONE (DELTASONE) 20 mg tablet Take 2 tablets (40 mg total) by mouth 1 (one) time each day. for 5 days ALLERGIES: Allergies Allergen Reactions Cat Dander Levaquin [Levofloxacin] Rash PHYSICAL EXAM: Blood pressure 120/60, pulse 77, temperature 37 ??C (98.6 ??F), temperature source Temporal, resp. rate 16, height 1.575 m (62 ), weight 86.1 kg (189 lb 14.4 oz). Body mass index is 34.73 kg/m??. BMIis greater than 25.0 (above the normal range) - see Plan APPEARANCE: Alert and in no acute distress EYES: PERRLA, conjunctiva and sclera normal THROAT: No erythema or exudates. No oral ulcers NECK: Neck supple, no adenopathy, thyroid symmetric and of normal size HEART: RRR with normal S1 and S2, no murmurs, no gallops LUNG: Clear to auscultation EXTREMITIES: No edema NEURO: Awake, alert and oriented x 3 SKIN: There is a bright red rash on the bilateral arms, abdomen. There is also erythema of the back, lower legs but more faint. There is dry skin noted LABS: Labs ordered IMAGING: None IMPRESSION/PLAN: 1. Encounter to establish care 2. Need for hepatitis C screening test Hepatitis C antibody 3. Encounter for screening for lipid disorder Lipid panel with reflex to direct LDL 4. Screening for HIV (human immunodeficiency virus) HIV 1,2 antibody, p24 antigen with reflex to differentiation 5. Allergic reaction to drug, initial encounter Comprehensive metabolic panel CBC and differential 6. Epididymitis Chlamydia trachomatis and Neisseria gonorrhoeae molecular study Medication and lab orders: Orders Placed This Encounter Procedures Chlamydia trachomatis and Neisseria gonorrhoeae molecular study Comprehensive metabolic panel Lipid panel with reflex to direct LDL HIV 1,2 antibody, p24 antigen with reflex to differentiation Hepatitis C antibody CBC and differential Other orders: None /2/3/4. Encounter to establish care. Updated problem list, surgical history, family history and social history. Routine labs ordered. 5. Allergic drug reaction to Levaquin. Evaluated patient today with Dr. Xavier. Recommended calamine based lotion, oatmeal baths. Prescribed Moriah in the morning, Claritin at nighttime and hydroxyzine as needed. Also prescribed prednisone taper. Discussed side effects. Advised patient to look outfor oral ulcers/close foot involvement, if he develops any, go to the emergency room. Advised patient to stop Bactrim. Labs ordered including CBC with differential and CMP. 6. The epididymitis is improved. He should have been done with the Bactrim by now. Advised patient to discontinue the Bactrim since he is feeling better. Chlamydia and gonorrhea testing is ordered. Advised the patient to call me if any problems. Patient understands the plan. Patient is in agreement with the plan. Today's documentation was made using voice recognition software.This note may contain grammatical errors secondary to this software. Lulu Shirley PA-C documented in this encounter Plan of Treatment Upcoming Encounters Date Type Department Care Team (Late st Contact Info) Description 05/21/2024 11:30 AM EDT Office Visit Adult Medicine [address] [phone] Lulu Shirley PA [address] [place] [address] documented as of this encounter Results * Chlamydia trachomatis and Neisseria gonorrhoeae molecular study (02/27/2024 1:55 PM EST) Neisseria gonorrhoeae PCR Negative Negative LAB MOLECULAR DIAGNOSTICS METHOD 02/28/2024 8:52 AM EST [facility] Chlamydia trachomatis PCR Negative Negative LAB MOLECULAR DIAGNOSTICS METHOD 02/28/2024 8:52 AM EST [facility] Swab Urine specimen / Unknown Non-blood Collection / Unknown 02/27/2024 1:55 PM EST 02/27/2024 1:55 PM EST Lulu Casper [facility] LAB MICROBIOLOGY - G ENERAL ORDERABLES Performing Organization Address City/[facility]/ZIP Co de Phone Number [facility] [address] [place] [address], * Hepatitis C antibody (02/27/2024 1:55 PM EST) Hepatitis C Antibody Negative Negative LAB CHEMISTRY METHOD 02/27/2024 9:44 PM EST [facility] Blood Venous blood specimen / Unknown Venipuncture / Unknown 02/27/2024 1:55 PM EST 02/27/2024 1:55 PM EST Lulu Casper [place] LAB BLOOD ORDERABLES Performing Organization Address [facility] de Phone Number [facility] [address] [place] [address], [place] [phone] * HIV 1,2 antibody, p24 antigen with reflex to differentiation (02/27/2024 1:55 PM EST) Pathologist [facility] HIV Combo AB/AG Negative Negative LAB CHEMISTRY METHOD 02/27/2024 9:44 PM EST [facility] Blood Venous blood specimen / Unknown Venipuncture / Unknown 02/27/2024 1:55 PM EST 02/27/2024 1:55 PM EST Narrative [facility] - 02/27/2024 9:44 PM EST [...] screening. Lulu Casper [facility] LAB BLOOD ORDERABLES Performing Organization Address [facility] Co de Phone Number [facility] [address] [place] [address], [place] [phone] * (ABNORMAL) Lipid panel with reflex to direct LDL (02/27/2024 1:55 PM EST) Cholesterol 189 0 - 200 mg/dL LAB CHEMISTRY METHOD 02/27/2024 7:12 PM EST [facility] Triglycerides 509(H) 0 - 150 mg/dL LAB CHEMISTRY METHOD 02/27/2024 7:12 PM [facility] HDL 52 >=40 mg/dL LAB CHEMISTRY METHOD 02/27/2024 7:12 PM EST [facility] LDL Calculated LAB CHEMISTRY METHOD 02/27/2024 7:12 PM [facility] Comment: Unable to calculate when triglycerides >400 mg/dL. Triglyceride value is >= 500. ??Calculated LDL is not meaningful. ??Direct LDL has been added. VLDL Cholesterol Remi LAB CHEMISTRY METHOD 02/27/2024 7:12 PM EST [facility] Comment:Unable to calculate when triglycerides >400 mg/dL. Non HDL Chol. (LDL+VLDL) LAB CHEMISTRY METHOD 02/27/2024 7:12 PM [facility] Comment:Unable to calculate when triglycerides >400 mg/dL. Chol/HDL Ratio 3.6 0.0 - 4.4 LAB CHEMISTRY METHOD 02/27/2024 7:12 PM [facility] Blood Venous blood specimen / Unknown Venipuncture / Unknown 02/27/2024 1:55 PM EST 02/27/2024 1:55 PM EST Lulu Casper [facility] LAB BLOOD ORDERABLES [facility] [address] [place] [address], [place] [phone] * (ABNORMAL) Comprehensive metabolic panel (02/27/2024 1:55 PM EST) Sodium 136 133 - 145 mmol/L LAB CHEMISTRY METHOD 02/27/2024 6:57 PM [facility] Potassium 3.4(L) 3.5 - 5.5 mmol/L LAB CHEMISTRY METHOD 02/27/2024 6:57 PM [facility] Chloride 99 96 - 110 mmol/L LAB CHEMISTRY METHOD 02/27/2024 6:57 PM [facility] CO2 30 21 - 32 mmol/L LAB CHEMISTRY METHOD 02/27/2024 6:57 PM [facility] Anion Gap 7 3 - 11 LAB CHEMISTRY METHOD 02/27/2024 6:57 PM [facility] Glucose 92 70 - 100 mg/dL LAB CHEMISTRY METHOD 02/27/2024 6:57 PM [facility] BUN 14 5 - 25 mg/dL LAB CHEMISTRY METHOD 02/27/2024 6:57 PM [facility] Creatinine 0.92 0.70 - 1.30 mg/dL LAB CHEMISTRY METHOD 02/27/2024 6:57 PM [facility] eGFR 119 >=60 mL/min/1. 73m2 LAB CHEMISTRY METHOD 02/27/2024 6:57 PM [facility] Comment:Calculation based on the??Chronic Kidney Disease Epidemiology Collaboration (CKD-EPI) equation refit??without adjustment for race. BUN/Creatinine Ratio 15.2 LAB CHEMISTRY METHOD 02/27/2024 6:57 PM [facility] Calcium 9.5 8.5 - 10.5 mg/dL LAB CHEMISTRY METHOD 02/27/2024 6:57 PM [facility] AST (SGOT) 19 10 - 42 unit/L LAB CHEMISTRY METHOD 02/27/2024 6:57 PM [facility] ALT (SGPT) 58 10 - 60 unit/L LAB CHEMISTRY METHOD 02/27/2024 6:57 PM [facility] Alkaline Phosphatase 92 42 - 121 unit/L LAB CHEMISTRY METHOD 02/27/2024 6:57 PM EST [facility] Total Protein 7.4 6.0 - 8.0 g/dL LAB CHEMISTRY METHOD 02/27/2024 6:57 PM EST [facility] Albumin 4.1 3.2 - 5.0 g/dL LAB CHEMISTRY METHOD 02/27/2024 6:57 PM EST [facility] Total Bilirubin 0.3 0.0 - 1.4 mg/dL LAB CHEMISTRY METHOD 02/27/2024 6:57 PM EST [facility] Blood Venous blood specimen / Unknown Venipuncture / Unknown 02/27/2024 1:55 PM EST 02/27/2024 1:55 PM EST Lulu Casper [facility] LAB BLOOD ORDERABLES [facility] [address] [place] [address], documented in this encounter Visit Diagnoses Diagnosis Encounter to establish care- Primary Need for hepatitis C screening test Special screening examination for other specified viral diseases Encounter for screening for lipid disorder Screening for HIV (human immunodeficiency virus) Special screening examination for other specified viral diseases Allergic reaction to drug, initial encounter Epididymitis Unspecified orchitis and epididymitis documented in this encounter Discontinued Medications Medication Sig Discontinue Reason Start Date End Da te predniSONE (DELTASONE) 20 mg tablet Take 2 tablets (40 mg total) by mouth 1 (one) time each day. for 5 days Therapy completed 02/05/2024 02/20/2024 levoFLOXacin (LEVAQUIN) 500 mg tablet Take 1 tablet (500 mg total) by mouth 1 (one) time each day. Allergic response 02/04/2024 02/20/2024 famotidine (PEPCID) 40 mg tablet Take 1 tablet (40 mg total) by mouth 1 (one) time each day. for 7 days Therapy completed 02/05/2024 02/20/2024 ketorolac (TORADOL) 10 mg tablet TAKE 1 TABLET BY MOUTH UP TO 3 TIMES A DAY NEEDED FOR PAIN FOR NO MORE THAN 5 DAYS. Therapy completed 02/04/2024 02/20/2024 Banophen 25 mg capsule TAKE 1 CAPSULE BY MOUTH 3 TIMES A DAY NEEDED FOR ALLERGIC REACTION Therapy completed 02/05/2024 02/20/2024 documented as of this encounter Historical Medications * This list may reflect changes made after this encounter. Medication Sig Dispensed Refills Start Date End Date sulfamethoxazole-trimeth oprim (BACTRIM DS,SEPTRA DS) 800-160 mg per tablet Take 1 tablet by mouth 2 (two) times a day. for 10 days 02/05/2024 predniSONE (DELTASONE) 20 mg tablet Take 2 tablets (40 mg total) by mouth 1 (one) time each day. for 5 days 02/05/2024 02/20/2024 levoFLOXacin (LEVAQUIN) 500 mg tablet Take 1 tablet (500 mg total) by mouth 1 (one) time each day. 02/04/2024 02/20/2024 ketorolac (TORADOL) 10 mg tablet TAKE 1 TABLET BY MOUTH UP TO 3 TIMES A DAY NEEDED FOR PAIN FOR NO MORE THAN 5 DAYS. 02/04/2024 02/20/2024 famotidine (PEPCID) 40 mg tablet Take 1 tablet (40 mg total) by mouth 1 (one) time each day. for 7 days 02/05/2024 02/20/2024 Banophen 25 mg capsule TAKE 1 CAPSULE BY MOUTH 3 TIMES A DAY NEEDED FOR ALLERGIC REACTION 02/05/2024 02/20/2024 added in this encounter Care Teams Embossing Machine Tender Relationship Specialty Start Date End Date Antelmo Xavier MD [address] [place] [address] PCP - General Internal Medicine 01/24/24 documented as of this encounter
--- OUTSIDE RECORDS SUMMARY | 2024-03-16 16:14 | XMS_ITS | Encounter Summary ---
Author Organization [facility] Address [address] [place] [address] Care Team Providers Care Car Inspection And Repair Manager Name Role Phone Antelmo Xavier MD Primary Care Provider Encounter Details Date Type Department Care Team (Late st Contact Info) Description 02/28/2024 Telephone Adult Medicine [address] [phone] Lulu Shirley PA [address] [place], [place] Social History Tobacco Use Types Packs/Day Years Used Date Smoking Tobacco: Never Passive Smoke Exposure: Never Smokeless Tobacco: Never Alcohol Use Standard Drinks/Week Comments Not Currently 0 (1 standard drink = 0.6 oz pur e alcohol) Sex and Gender Information Value Date Recorded Sex Assigned at Male 03/01/2024 1:41 PM EST Gender Identity Male 03/01/2024 1:41 PM EST Sexual Orientation Not on file Job Start Date Occupation Industry Not on file Not on file Not on file documented as of this encounter Progress Notes * Cat Barry MA - 03/01/2024 1:20 PM EST Pt was inform about lab result also inform pt to repeat labs. * LINDSAY Gaffney - 02/28/2024 6:09 PM EST Please call patient and inform him of the following: Potassium level is slightly low at 3.4. I recommend a high potassium diet and repeat lab in 2 weeks. Some high potassium dietary choices: Apricots, Avocado, Banana, Brocolli*, Cabbage*, Cantaloupe, Dates, Figs, [place] (unsalted), Grapefruit (fruit or juice), Molasses, Mushrooms*, Nectarines, Oranges (fruit or juice), Peanuts (unsalted), Pineapple (fruit or juice), Plums, Potato, Pumpkin, Prunes (fruit or juice), Radishes*, Raisins, Rhubarb, Tomato*, Watermelon, Wheat Germ * = Foods that are also low in calories The cholesterol level was nonfasting. I do need a fasting sample. HIV, hepatitis C, chlamydia and gonorrhea urine tests are negative. White blood cell count is elevated but he was on prednisone. He does have a slight anemia and slightly elevated platelets. I recommend repeating this in 1 month. documented in this encounter Plan of Treatment Upcoming Encounters Date Type Department Care Team (Late st Contact Info) Description 05/21/2024 11:30 AM EDT Office Visit Adult Medicine [address] [phone] Lulu Shirley PA [address] [place] [phone] Scheduled Orders Name Type Priority Associated Diagnoses Orde r Schedule Lipid panel with reflex to direct LDL Lab Routine Hypertriglyceridemia 1 Occurrences starting 02/28/2024 until 02/27/2025 Potassium Lab Routine Hypokalemia Expected: 03/13/2024, Expires: 02/27/2025 CBC and differential Lab Routine Leukocytosis, unspecified type Expected: 02/28/2024, Expires: 02/27/2025 documented as of this encounter Visit Diagnoses Diagnosis Leukocytosis, unspecified type- Primary Hypokalemia Hypopotassemia Hypertriglyceridemia Pure hyperglyceridemia documented in this encounter Care Teams Car Inspection And Repair Manager Relationship Specialty Start Date End Date Antelmo Xavier MD [address] [place] [address] PCP - General Internal Medicine 01/24/24 documented as of this encounter
--- OUTSIDE RECORDS SUMMARY | 2024-03-16 16:14 | XMS_ITS | Encounter Summary ---
Author Organization [facility] Address [address] [place] [address] Care Team Providers Care Golf Starter And Ranger Name Role Phone Antelmo Xavier MD Primary Care Provider Encounter Details Date Type Department Care Team (Late Contact Info) Description 01/24/2024 Telephone Adult Medicine [address] [phone] Antelmo Xavier MD [address] [place] [address] Social History Tobacco Use Types Packs/Day Years Used Date Smoking Tobacco: Never Assessed Sex and Gender Information Value Date Recorded Sex Assigned at Male 03/01/2024 1:41 PM EST Gender Identity Male 03/01/2024 1:41 PM EST Sexual Orientation Not on file Job Start Date Occupation Industry Not on file Not on file Not on file documented as of this encounter Plan of Treatment Upcoming Encounters Date Type Department Care Team (Late st Contact Info) Description 05/21/2024 11:30 AM EDT Office Visit Adult Medicine [address] [phone] uLlu Shirley PA [address] [place] [address] documented as of this encounter Visit Diagnoses Not on filedocumented in this encounter Care Teams Golf Starter And Ranger Relationship Specialty Start Date End Date Antelmo Xavier MD [address] [place] [address] PCP - General Internal Medicine 01/24/24 documented as of this encounter
--- OUTSIDE RECORDS SUMMARY | 2024-03-16 16:14 | XMS_ITS | Encounter Summary ---
Author Organization [facility] Address [address] [place] [address] Care Team Providers Care Hatch Tender Name Role Phone Antelmo Xavier MD Primary Care Provider Reason for Visit * Reason Onset Date Comments Ezcema 03/15/2024 Rash 03/15/2024 Encounter Details Date Type Department Care Team ([facility] st Contact Info) Description 03/15/2024 Telephone Adult [facility] [address] [place] [address] Antelmo Xavier MD [address] [place] [address] Ezcema; Rash Social History Tobacco Use Types Packs/Day Years [...] as of this encounter Progress Notes * Laura Wilson RN - 03/15/2024 4:05 PM EST Spoke with the pt Continues with the itching from when he was seen at the ER earlier in February. Was given medications and they helped but when the meds completed the eczema flared again. Eczema flare on torso front and back, arms, legs and face. Using eucerin cream and helps a little but then makes the area dry and has to keep applying Scheduled eval for 03/16 at 1:45 * Jacquelinedorothy Lopez - 03/15/2024 3:56 PM EST The patient is calling due to Ezcema breakout. He states that his breakout is severe to a point where he can not move as much and would like to see someone if possibly tomorrow. documented in this encounter Plan of Treatment Upcoming Encounters Date Type Department Care Team (Late st Contact Info) Description 05/21/2024 11:30 AM EDT Office Visit Adult Medicine [address] [phone] Lulu Shirley PA [address], [place] documented as of this encounter Visit Diagnoses Not on filedocumented in this encounter Care Teams Hatch Tender Relationship Specialty Start Date End Date Antelmo Xavier MD [address] [place] [address] PCP - General Internal Medicine 01/24/24 documented as of this encounter
[2024-03-16 16:22] VITALS: BP 118/54; PULSE 75; RESP 18; TEMP 36.7; O2SAT 100
== END 2024-03-16 16:25 | disposition home or self-care (01) ==
PROVIDERS: Emergency Provider Emergency Medicine
DX: L20.9 Atopic dermatitis, unspecified (principal); L29.9 Pruritus, unspecified; Z79.899 Other long term (current) drug therapy
CPT/HCPCS: 99282; 99283

== ENCOUNTER 2024-03-17 13:13 | Emergency (ER) | payer SELFPAY ==
[2024-03-17 13:17] VITALS: BP 106/61; PULSE 70; RESP 18; TEMP 36.6; O2SAT 99; BMI 35.7
--- NOTE | 2024-03-17 13:20 | ED.ALLEREA ---
HPI - Allergic Reaction General Chief complaint: Allergic Reaction Stated complaint: allergic reaction Time Seen by Provider: 03/17/24 13:37 Source: patient and old records reviewed Mode of arrival: ambulatory Limitations: no limitations History of Present Illness ED Provider: ELYSSA SMITH narrative: 24 yo male with PMH asthma and eczema also a cat dander allergy who just found out he was exposed to cat dander now he c/o has hives and itching eyes no diff breathing and no oral swelling. He notes he has been on prednisone since yesterday and hydrocortisone but it is very itchy. He is not taking any OTC meds with it. complaint: allergic reaction and hives Onset (ago): day(s) (2) Exposure: other (cat dander) Symptoms: rash and itching Severity: moderate Treatment prior to arrival: steroids Previous Allergic Reaction History: prior ED visit(s) Related Data Previous Rx's ?Medication ?Instructions ?Recorded albuterol sulfate 90 mcg/actuation 2 inh inhalation Q4-6H PRN 05/21/23 breath activated powder inhaler shortness of breath or wheezing #1 ea prednisone 20 mg tablet 40 mg (2 x 20 mg) PO DAILY 5 days 05/21/23 #10 tabs ketorolac 10 mg tablet 10 mg PO TID PRN pain #12 tabs 02/04/24 levofloxacin 500 mg tablet 500 mg PO DAILY #9 tabs 02/04/24 diphenhydramine HCl 25 mg capsule 25 mg PO TID PRN allergic reaction 02/05/24 (Benadryl) #21 caps famotidine 40 mg tablet (Pepcid) 40 mg PO DAILY 7 days #7 tabs 02/05/24 prednisone 20 mg tablet 40 mg (2 x 20 mg) PO DAILY 5 days 02/05/24 #10 tabs sulfamethoxazole 800 1 tab PO BID 10 days #20 tabs 02/05/24 mg-trimethoprim 160 mg tablet (Bactrim DS) hydrocortisone 2.5 % topical cream 1 appl topical QID PRN rash #453.6 03/16/24 grams prednisone 20 mg tablet 60 mg (3 x 20 mg) PO BID #15 tabs 03/16/24 cetirizine 10 mg tablet 10 mg PO DAILY #30 tabs 03/17/24 epinephrine 0.3 mg/0.3 mL 0.3 mg (0.3 mL) IM Q10M PRN 03/17/24 injection, auto-injector anaphylaxis #2 ea famotidine 20 mg tablet (Pepcid) 20 mg PO DAILY 14 days #14 tabs 03/17/24 hydroxyzine HCl 50 mg tablet 50 mg PO Q8H PRN itching #60 tabs 03/17/24 Allergies Allergy/AdvReac Type Severity Reaction Status Date / Time cat dander [CAT] Allergy Intermediate SNEEZING Verified 03/17/24 13:21 ITCHY EYES Review of Systems Review of Systems: Constitutional : No Fever, No Chills ENT/Mouth : no oral swelling, No Hoarseness, No Swallowing Difficulty Eyes: No Eye Pain, No Swelling, No Redness Cardiovascular : No Chest Pain, No SOB Respiratory : No Cough, No Sputum, No Wheezing, No Smoke Exposure, No Dyspnea Gastrointestinal : No Nausea, No Vomiting, No Diarrhea, No abdominal Pain Genitourinary : No Dysuria, No Urinary Frequency, No Hematuria Musculoskeletal : No joint pain, No Myalgias, No Joint Swelling Skin : No Skin Lesions, positive rash Neuro : No Weakness, No Numbness, No Headache Psych : No Anxiety/Panic, No Depression All other systems reviewed and are negative [facility] Past Medical History Attestation statement: The following information was validated with the patient. Source: old records reviewed Medical History Eczema Asthma Asthma Social History Social History Alcohol intake: current Alcohol intake frequency: holidays/special occasions only Patient Tobacco Use Status: Current everyday Tobacco user Tobacco use type: Smokeless Tobacco e-Cigarette/Vaping Use: Currently Using Second Hand Smoke Exposure: No Advance Directives: Yes Advance Directives on File: Yes Advance Directives Date on File: 05/23/23 Do you have a plan to hurt others: No Plan service: No Physical Exam ED Vital Signs: Vital Signs - 24 hr 03/17/24 13:17 Temperature 98 F Pulse Rate 70 Respiratory Rate 18 Blood Pressure 106/61 Pulse Oximetry 99 Oxygen Delivery Method Room Air BMI result Body Mass Index 35.7 Appearance: Alert. Oriented X3. No acute distress. Eyes: Pupils equal, round and reactive to light. ENT: Pharynx normal. no angioedema Neck: Normal inspection. Neck supple. CVS: Normal heart rate and rhythm. Pulses normal. Respiratory: No respiratory distress. Breath sounds normal. Abdomen: Soft and nontender. Skin: Skin warm and dry. Normal skin color. hives on both arms and mild red swelling around eyes Extremities: No lower extremity edema. Neuro: Oriented X 3. No motor deficit. No sensory deficit. CN2-12 intact Course Course Course Narrative: 24 yo male no PMH seen yesterday for rash prescribed prednisone burst and hydrocortisone cream he is taking no other medications now c/o rash spreading, itchy eyes and now realized it was a cat exposure, clear lungs and airway will add on claritin, pepcid, benadryl and observe. No need for IM epi at this time this is a RAPID medical screening exam the rest of the history and physical exam is to be done by the main provider. Medications Administered Discontinued Medications Generic Name Dose Route Start Last Admin Trade Name Freq PRN Reason Stop Dose Admin Diphenhydramine HCl 25 mg 03/17/24 13:19 03/17/24 13:26 Diphenhydramine Hcl 25 Mg Capsule PO 03/17/24 13:20 25 mg ONCE ONE Administration Famotidine 20 mg 03/17/24 13:19 03/17/24 13:26 Famotidine 20 Mg Tablet PO 03/17/24 13:20 20 mg ONCE ONE Administration Loratadine 10 mg 03/17/24 13:19 03/17/24 13:26 Loratadine 10 Mg Tablet PO 03/17/24 13:20 10 mg ONCE ONE Administration Medical Decision Making Medical Decision Making [facility] Narrative: 24 yo male with eczema and asthma worsening here with c/o diffuse hives and rash but normal VS and no signs of anaphylaxis at this time will add on antihistamines and precautions to return. He is not toxic appearing Differential Diagnosis Differential Diagnoses: The differential diagnosis associated with the presentation includes hives, urticaria Lab Data MDM Lab Attestation statement: I reviewed the patient's lab results. External Record Review External record reviewed: Outpatient record Prescription Management I considered prescription management with: Other Discharge Plan Discharge Clinical Impression: Allergic reaction Qualifiers: Encounter type: initial encounter Qualified Code(s): T78.40XA - Allergy, unspecified, initial encounter Patient Disposition: Home, Self-Care Instructions: General Allergic Reaction (ED) Additional Instructions: return for worsening symptoms - increased swelling, throat closing carry epi pen continue the prednisone and hydrocortisone the hydrocortisone cannot be applied to the face Prescriptions: New cetirizine 10 mg tablet 10 mg PO DAILY Qty: 30 0RF hydroxyzine HCl 50 mg tablet 50 mg PO Q8H PRN (Reason: itching) Qty: 60 0RF famotidine [Pepcid] 20 mg tablet 20 mg PO DAILY 14 Days Qty: 14 0RF epinephrine 0.3 mg/0.3 mL auto-injector 0.3 mg IM Q10M PRN (Reason: anaphylaxis) Qty: 2 0RF Rx Instructions: for 2 doses No Action prednisone 20 mg tablet 40 mg PO DAILY 5 Days Qty: 10 0RF albuterol sulfate 90 mcg/actuation aerosol powdr breath activated 2 inh inhalation Q4-6H PRN (Reason: shortness of breath or wheezing) Qty: 1 0RF levofloxacin 500 mg tablet 500 mg PO DAILY Qty: 9 0RF ketorolac 10 mg tablet 10 mg PO TID PRN (Reason: pain) Qty: 12 0RF prednisone 20 mg tablet 40 mg PO DAILY 5 Days Qty: 10 0RF diphenhydramine HCl [Benadryl] 25 mg capsule 25 mg PO TID PRN (Reason: allergic reaction) Qty: 21 0RF famotidine [Pepcid] 40 mg tablet 40 mg PO DAILY 7 Days Qty: 7 0RF sulfamethoxazole-trimethoprim [Bactrim DS] 800-160 mg tablet 1 tab PO BID 10 Days Qty: 20 0RF prednisone 20 mg tablet 60 mg PO BID Qty: 15 0RF hydrocortisone 2.5 % cream 1 appl topical QID PRN (Reason: rash) Qty: 453.6 0RF Discharge Date/Time: 03/17/24 14:20 Print Language: Estonian
[2024-03-17] MEDS: diphenhydrAMINE HCL 25 MG CAPSULE PO (13:26)
[2024-03-17] MEDS: Famotidine 20 MG TABLET PO (13:26)
[2024-03-17] MEDS: Loratadine 10 MG TABLET PO (13:26)
--- OUTSIDE RECORDS SUMMARY | 2024-03-17 13:29 | XMS_ITS | Encounter Summary ---
Author Organization [facility] Address [address] [place] [address] Care Team Providers Care Refrigerator Crater Name Role Phone Antelmo Xavier MD Primary Care Provider Encounter Details Date Type Department Care Team (Late Contact Info) Description 01/24/2024 Telephone Adult Medicine [address] [phone] Antelmo Xavier MD [address] [place] [address] Social History Tobacco Use Types Packs/Day Years [...] Encounters Date Type Department Care Team (Late Contact Info) Description 05/21/2024 11:30 AM EDT Office Visit Adult Medicine [address] [phone] Lulu Shirley PA [address] [place] [address] documented as of this encounter Visit Diagnoses Not on filedocumented in this encounter Care Teams Refrigerator Crater Relationship Specialty Start Date End Date Antelmo Xavier MD [address] [place] [address] PCP - General Internal Medicine 01/24/24 documented as of this encounter
--- OUTSIDE RECORDS SUMMARY | 2024-03-17 13:29 | XMS_ITS | Encounter Summary ---
Author Organization [facility] Address [address] [place] [address] Care Team Providers Care Intermediate Card Tender Name Role Phone Antelmo Xavier MD Primary Care Provider Reason for Visit * Reason Comments Follow-up [facility] 02/13/24 Encounter Details Date Type Department Care Team ([facility] st Contact Info) Description 02/20/2024 11:00 AM EST Office Visit Adult Medicine [facility] [address] [place], [place] [phone] Lulu Shirley PA [address], [place] Encounter to establish care (Primary Dx); [...] 02/20/2024 11:00 AM EST CHIEF COMPLAINT: Follow-up ([facility] 02/13/24) IDENTIFIER: Dwayne Kaye is a 24 y.o. old male. HPI: Patient is a 24-year-old male who presents to the office today for ER follow-up, to establish care.He is transferring from a PCP in [place], [facility] transfer records. He is accompanied by his girlfriend Kelly. He presented to [facility] on 02/05/2024 complaining [...] daily x 7 days. He presented to [facility] the day prior [...] 11:30 AM EDT Office Visit Adult Medicine [address] [phone] Lulu Shirley PA [address] [place] [address] documented as of this encounter Results * Chlamydia trachomatis and Neisseria gonorrhoeae molecular study (02/27/2024 1:55 PM EST) Neisseria gonorrhoeae PCR Negative Negative LAB MOLECULAR DIAGNOSTICS METHOD 02/28/2024 8:52 AM EST [facility] Chlamydia trachomatis PCR Negative Negative LAB MOLECULAR DIAGNOSTICS METHOD 02/28/2024 8:52 AM EST [facility] Swab Urine specimen / Unknown Non-blood Collection / Unknown 02/27/2024 1:55 PM EST 02/27/2024 1:55 PM EST Lulu Casper [facility] MICROBIOLOGY - G ENERAL ORDERABLES Performing Organization Address City/[facility]/ZIP Co de Phone Number [facility] [address] [place] [address], * Hepatitis C antibody (02/27/2024 1:55 PM EST) Hepatitis C Antibody Negative Negative LAB CHEMISTRY METHOD 02/27/2024 9:44 PM EST [facility] Blood Venous blood specimen / Unknown Venipuncture / Unknown 02/27/2024 1:55 PM EST 02/27/2024 1:55 PM EST Lulu Casper [place] LAB BLOOD ORDERABLES Performing Organization Address [facility] de Phone Number [facility] [address] [place] [address], [place] [phone] * HIV 1,2 antibody, p24 antigen with reflex to differentiation (02/27/2024 1:55 PM EST) Pathologist [facility] HIV Combo AB/AG Negative Negative LAB CHEMISTRY METHOD 02/27/2024 9:44 PM EST [facility] Blood Venous blood specimen / Unknown Venipuncture / Unknown 02/27/2024 1:55 PM EST 02/27/2024 1:55 PM EST Narrative [facility] - 02/27/2024 9:44 PM EST [...] [facility] BLOOD ORDERABLES Performing Organization Address [facility] Co de Phone Number [facility] [address] [place] [address], [place] [phone] * (ABNORMAL) Lipid panel with reflex to direct LDL (02/27/2024 1:55 PM EST) Cholesterol 189 0 - 200 mg/dL LAB CHEMISTRY METHOD 02/27/2024 7:12 PM EST [facility] Triglycerides 509(H) 0 - 150 mg/dL LAB CHEMISTRY METHOD 02/27/2024 7:12 PM [facility] HDL 52 >=40 mg/dL LAB CHEMISTRY METHOD 02/27/2024 7:12 PM EST [facility] LDL Calculated LAB CHEMISTRY METHOD 02/27/2024 7:12 PM [facility] Comment: Unable to calculate when triglycerides >400 mg/dL. Triglyceride value is >= 500. ??Calculated LDL is not meaningful. ??Direct LDL has been added. VLDL Cholesterol Remi LAB CHEMISTRY METHOD 02/27/2024 7:12 PM EST [facility] Comment:Unable to calculate when triglycerides >400 mg/dL. Non HDL Chol. (LDL+VLDL) LAB CHEMISTRY METHOD 02/27/2024 7:12 PM [facility] Comment:Unable to calculate when triglycerides >400 mg/dL. Chol/HDL Ratio 3.6 0.0 - 4.4 LAB CHEMISTRY METHOD 02/27/2024 7:12 PM [facility] Blood Venous blood specimen / Unknown Venipuncture / Unknown 02/27/2024 1:55 PM EST 02/27/2024 1:55 PM EST Lulu Casper [facility] LAB BLOOD ORDERABLES [facility] [address] [place] [address], [place] [phone] * (ABNORMAL) Comprehensive metabolic panel (02/27/2024 1:55 PM EST) Sodium 136 133 - 145 mmol/L LAB CHEMISTRY METHOD 02/27/2024 6:57 PM [facility] Potassium 3.4(L) 3.5 - 5.5 mmol/L LAB CHEMISTRY METHOD 02/27/2024 6:57 PM [facility] Chloride 99 96 - 110 mmol/L LAB CHEMISTRY METHOD 02/27/2024 6:57 PM [facility] CO2 30 21 - 32 mmol/L LAB CHEMISTRY METHOD 02/27/2024 6:57 PM [facility] Anion Gap 7 3 - 11 LAB CHEMISTRY METHOD 02/27/2024 6:57 PM [facility] Glucose 92 70 - 100 mg/dL LAB CHEMISTRY METHOD 02/27/2024 6:57 PM [facility] BUN 14 5 - 25 mg/dL LAB CHEMISTRY METHOD 02/27/2024 6:57 PM [facility] Creatinine 0.92 0.70 - 1.30 mg/dL LAB CHEMISTRY METHOD 02/27/2024 6:57 PM [facility] eGFR 119 >=60 mL/min/1. 73m2 LAB CHEMISTRY METHOD 02/27/2024 6:57 PM [facility] Comment:Calculation based on the??Chronic Kidney Disease Epidemiology Collaboration (CKD-EPI) equation refit??without adjustment for race. BUN/Creatinine Ratio 15.2 LAB CHEMISTRY METHOD 02/27/2024 6:57 PM [facility] Calcium 9.5 8.5 - 10.5 mg/dL LAB CHEMISTRY METHOD 02/27/2024 6:57 PM [facility] AST (SGOT) 19 10 - 42 unit/L LAB CHEMISTRY METHOD 02/27/2024 6:57 PM [facility] ALT (SGPT) 58 10 - 60 unit/L LAB CHEMISTRY METHOD 02/27/2024 6:57 PM [facility] Alkaline Phosphatase 92 42 - 121 unit/L LAB CHEMISTRY METHOD 02/27/2024 6:57 PM EST [facility] Total Protein 7.4 6.0 - 8.0 g/dL LAB CHEMISTRY METHOD 02/27/2024 6:57 PM EST [facility] Albumin 4.1 3.2 - 5.0 g/dL LAB CHEMISTRY METHOD 02/27/2024 6:57 PM EST [facility] Total Bilirubin 0.3 0.0 - 1.4 mg/dL LAB CHEMISTRY METHOD 02/27/2024 6:57 PM EST [facility] Blood Venous blood specimen / Unknown Venipuncture / Unknown 02/27/2024 1:55 PM EST 02/27/2024 1:55 PM EST Lulu Casper [facility] LAB BLOOD ORDERABLES [facility] [address] [place] [address], documented in this encounter Visit Diagnoses Diagnosis [...] 02/20/2024 added in this encounter Care Teams Intermediate Card Tender Relationship Specialty Start Date End Date Antelmo Xavier MD [address] [place] [address] PCP - General Internal Medicine 01/24/24 documented as of this encounter
--- OUTSIDE RECORDS SUMMARY | 2024-03-17 13:29 | XMS_ITS | Encounter Summary ---
Author Organization [facility] Address [address] [place] [address] Care Team Providers Care Client Business Manager Name Role Phone Antelmo Xavier MD Primary Care Provider Reason for Visit * Reason Onset Date Comments Ezcema 03/15/2024 Rash 03/15/2024 Encounter Details Date Type Department Care Team ([facility] st Contact Info) Description 03/15/2024 Telephone Adult [facility] [address] [place] [address] Antelmo Xavier MD [address] [place] [address] Ezcema; Rash Social History Tobacco Use Types [...] 11:30 AM EDT Office Visit Adult Medicine [address] [phone] Lulu Shirley PA [address] [place], [place] documented as of this encounter Visit Diagnoses Not on filedocumented in this encounter Care Teams Client Business Manager Relationship Specialty Start Date End Date Antemlo Xavier MD [address] [place] [address] PCP - General Internal Medicine 01/24/24 documented as of this encounter
--- OUTSIDE RECORDS SUMMARY | 2024-03-17 13:29 | XMS_ITS | Encounter Summary ---
Author Organization [facility] Address [address] [place] [address] Care Team Providers Care Diversity Specialist Name Role Phone Antelmo Xavier MD Primary Care Provider Encounter Details Date Type Department Care Team (Late st Contact Info) Description 02/28/2024 Telephone Adult Medicine [address] [phone] Lulu Shirley PA [address] [place], [place] Social History Tobacco Use Types Packs/Day [...] Avocado, Banana, Brocolli*, Cabbage*, Cantaloupe, Dates, Figs, [place] Calypso (unsalted), Grapefruit (fruit or juice), Molasses, Mushrooms*, [...] 11:30 AM EDT Office Visit Adult Medicine [address] [phone] Lulu Shirley PA [address] [place] [phone] Scheduled Orders Name Type Priority Associated Diagnoses [...] hyperglyceridemia documented in this encounter Care Teams Diversity Specialist Relationship Specialty Start Date End Date Antelmo Xavier MD [address] [place] [address] PCP - General Internal Medicine 01/24/24 documented as of this encounter
[2024-03-17 14:18] VITALS: BP 106/61; PULSE 70; RESP 18; TEMP 36.6; O2SAT 99
== END 2024-03-17 14:20 | disposition home or self-care (01) ==
PROVIDERS: Emergency Provider Emergency Medicine
DX: L50.9 Urticaria, unspecified (principal); T78.40XA Allergy, unspecified, initial encounter; X58.XXXA Exposure to other specified factors, initial encounter
CPT/HCPCS: 99282; 99283

== ENCOUNTER 2024-07-28 10:39 | Emergency (ER) | payer OTHER, SELFPAY ==
[2024-07-28 10:40] VITALS: BP 111/70; PULSE 91; RESP 18; TEMP 36.6; O2SAT 98; BMI 34.3
[2024-07-28] MEDS: predniSONE 20 MG TABLET 60 MG PO (11:23)
--- NOTE | 2024-07-28 11:25 | ED_ITS ---
HPI - Skin/Abscess/Foreign Bdy General Chief complaint: Skin/Abscess/Foreign Body Stated complaint: allergic reaction Time Seen by Provider: 07/28/24 10:57 Source: patient and old records reviewed Mode of arrival: ambulatory Limitations: no limitations History of Present Illness ED Provider: ELYSSA SMITH narrative: 24 yo male with severe eczema has not been able to get into bank courier or drying machine back tender. Now here with severe rash itching and red across entire body. He tried eucerin but no relief. He has no new exposures, in past it was cats but he has not been around them. MD complaint: rash Onset (ago): day(s) (2) Location: generalized Severity: moderate Quality: pruritic Pain Consistency: constant Relieving factors: none Exacerbating factors: none Context: none Associated symptoms: denies other symptoms Treatments prior to arrival: other Related Data Previous Rx's ?Medication ?Instructions ?Recorded albuterol sulfate 90 mcg/actuation 2 inh inhalation Q4-6H PRN 05/21/23 breath activated powder inhaler shortness of breath or wheezing #1 ea prednisone 20 mg tablet 40 mg (2 x 20 mg) PO DAILY 5 days 05/21/23 #10 tabs ketorolac 10 mg tablet 10 mg PO TID PRN pain #12 tabs 02/04/24 levofloxacin 500 mg tablet 500 mg PO DAILY #9 tabs 02/04/24 diphenhydramine HCl 25 mg capsule 25 mg PO TID PRN allergic reaction 02/05/24 (Benadryl) #21 caps famotidine 40 mg tablet (Pepcid) 40 mg PO DAILY 7 days #7 tabs 02/05/24 prednisone 20 mg tablet 40 mg (2 x 20 mg) PO DAILY 5 days 02/05/24 #10 tabs sulfamethoxazole 800 1 tab PO BID 10 days #20 tabs 02/05/24 mg-trimethoprim 160 mg tablet (Bactrim DS) hydrocortisone 2.5 % topical cream 1 appl topical QID PRN rash #453.6 03/16/24 grams prednisone 20 mg tablet 60 mg (3 x 20 mg) PO BID #15 tabs 03/16/24 cetirizine 10 mg tablet 10 mg PO DAILY #30 tabs 03/17/24 epinephrine 0.3 mg/0.3 mL 0.3 mg (0.3 mL) IM Q10M PRN 03/17/24 injection, auto-injector anaphylaxis #2 ea famotidine 20 mg tablet (Pepcid) 20 mg PO DAILY 14 days #14 tabs 03/17/24 hydroxyzine HCl 50 mg tablet 50 mg PO Q8H PRN itching #60 tabs 03/17/24 prednisone 10 mg tablet 10 mg PO DIRECTED #41 tabs 07/28/24 Allergies Allergy/AdvReac Type Severity Reaction Status Date / Time cat dander [CAT] Allergy Intermediate SNEEZING Verified 07/28/24 10:42 ITCHY EYES Review of Systems Review of Systems: Constitutional : No Fever, No Chills ENT/Mouth : No sore throat, No Rhinorrhea Eyes: No Eye Pain, No Swelling, No Redness Cardiovascular : No Chest Pain, No SOB Respiratory : No Cough, No Sputum Gastrointestinal : No Nausea, No Vomiting, No Diarrhea, No abdominal Pain Genitourinary : No Dysuria, No Hematuria Musculoskeletal : No joint pain, No Myalgias, No Joint Swelling Skin : No Skin Lesions, positive skin rash Neuro : No Weakness, No Numbness, No Headache All other systems reviewed and are negative [facility] Past Medical History Attestation statement: The following information was validated with the patient. Source: old records reviewed Medical History Eczema Asthma Asthma Social History Social History Alcohol intake: current Alcohol intake frequency: holidays/special occasions only Patient Tobacco Use Status: Current everyday Tobacco user Tobacco use type: Smokeless Tobacco e-Cigarette/Vaping Use: Currently Using Second Hand Smoke Exposure: No Advance Directives: Yes Advance Directives on File: Yes Advance Directives Date on File: 05/23/23 service: No Physical Exam Vital Signs: Vital Signs: Last Vital Signs Temp 97.9 F 07/28/24 10:40 Pulse 91 07/28/24 10:40 Resp 18 07/28/24 10:40 BP 111/70 07/28/24 10:40 Pulse Ox 98 07/28/24 10:40 O2 Del Method Room Air 07/28/24 10:40 BMI result Body Mass Index 34.3 Appearance: Alert. Oriented X3. No acute distress. Eyes: Pupils equal, round and reactive to light. ENT: Pharynx normal. Neck: Normal inspection. Neck supple. CVS: Normal heart rate and rhythm. Pulses normal. Respiratory: No respiratory distress. Breath sounds normal. Abdomen: Soft and nontender. Skin: Skin warm and dry. diffuse scaling red rash that is excoriated no signs of infection Extremities: No lower extremity edema. No calf ttp Neuro: Oriented X 3. No motor deficit. No sensory deficit. CN2-12 intact Medications Administered Discontinued Medications Generic Name Dose Route Start Last Admin Trade Name Freq PRN Reason Stop Dose Admin Prednisone 60 mg 07/28/24 11:17 07/28/24 11:23 Prednisone 20 Mg Tablet PO 07/28/24 11:18 60 mg ONCE ONE Administration Medical Decision Making Medical Decision Making MDM Narrative: 24 yo male with no sig PMH other than asthma and eczema - he has significant flare that will require prednisone taper. No signs of infection or URI/asthma issues. He is aware. We discussed derm and allergy follow up - he is trying. Differential Diagnosis Differential Diagnoses: The differential diagnosis associated with the presentation includes eczema, allergy Admission/Observation Consideration of admission/observation: Escalation of care including admission/observation considered can be managed as outpatient External Record Review External record reviewed: Outpatient record Prescription Management I considered prescription management with: Other Discharge Plan Discharge Clinical Impression: Eczema Qualifiers: Eczema type: unspecified Qualified Code(s): L30.9 - Dermatitis, unspecified Patient Disposition: Home, Self-Care Instructions: Eczema (ED) Additional Instructions: take prednisone with food return for any issues with breathing, signs of skin infection or any other concerns continue to use eucerin or aquaphor to coat your skin Prescriptions: New prednisone 10 mg tablet 10 mg PO DIRECTED Qty: 41 0RF Rx Instructions: see taper instructions 60mg on day 1-5, 40mg on day 6, 30mg on day 7, 20mg on day 8, 10mg on day 9, 5mg on day 10 No Action prednisone 20 mg tablet 40 mg PO DAILY 5 Days Qty: 10 0RF albuterol sulfate 90 mcg/actuation aerosol powdr breath activated 2 inh inhalation Q4-6H PRN (Reason: shortness of breath or wheezing) Qty: 1 0RF levofloxacin 500 mg tablet 500 mg PO DAILY Qty: 9 0RF ketorolac 10 mg tablet 10 mg PO TID PRN (Reason: pain) Qty: 12 0RF prednisone 20 mg tablet 40 mg PO DAILY 5 Days Qty: 10 0RF diphenhydramine HCl [Benadryl] 25 mg capsule 25 mg PO TID PRN (Reason: allergic reaction) Qty: 21 0RF famotidine [Pepcid] 40 mg tablet 40 mg PO DAILY 7 Days Qty: 7 0RF sulfamethoxazole-trimethoprim [Bactrim DS] 800-160 mg tablet 1 tab PO BID 10 Days Qty: 20 0RF prednisone 20 mg tablet 60 mg PO BID Qty: 15 0RF hydrocortisone 2.5 % cream 1 appl topical QID PRN (Reason: rash) Qty: 453.6 0RF cetirizine 10 mg tablet 10 mg PO DAILY Qty: 30 0RF hydroxyzine HCl 50 mg tablet 50 mg PO Q8H PRN (Reason: itching) Qty: 60 0RF famotidine [Pepcid] 20 mg tablet 20 mg PO DAILY 14 Days Qty: 14 0RF epinephrine 0.3 mg/0.3 mL auto-injector 0.3 mg IM Q10M PRN (Reason: anaphylaxis) Qty: 2 0RF Rx Instructions: for 2 doses Print Language: Macanese
[2024-07-28 11:53] VITALS: BP 111/70; PULSE 91; RESP 18; TEMP 36.6; O2SAT 98
== END 2024-07-28 11:54 | disposition home or self-care (01) ==
PROVIDERS: Emergency Provider Emergency Medicine
DX: L30.9 Dermatitis, unspecified (principal); L29.9 Pruritus, unspecified; Z79.899 Other long term (current) drug therapy
CPT/HCPCS: 99283; 99284

== ENCOUNTER 2024-08-10 09:31 | Emergency (ER) | payer OTHER, SELFPAY ==
[2024-08-10 09:37] VITALS: BP 135/49; PULSE 87; RESP 16; TEMP 36.7; O2SAT 100; BMI 36.6
--- NOTE | 2024-08-10 10:04 | ECG_ITS ---
Test Reason : sob Blood Pressure : */* mmHG Vent. Rate : 73 BPM Atrial Rate : 73 BPM P-R Int : 148 ms QRS Dur : 72 ms QT Int : 376 ms P-R-T Axes : 31 25 -15 degrees QTcB Int : 414 ms Normal sinus rhythm Nonspecific ST and T wave abnormality Borderline ECG No previous ECGs available Referred By: Generic ED Physician Electronically Signed By: HENRY TAY
--- NOTE | 2024-08-10 10:06 | ED.GENADULT ---
HPI - General Adult General Chief complaint: Allergic Reaction Stated complaint: Allergic reaction, sharp pain left side, sob, rash Time Seen by Provider: 08/10/24 10:05 Source: patient, RN notes reviewed and old records reviewed Mode of arrival: ambulatory Limitations: no limitations History of Present Illness ED Provider: Aleksandr HPI narrative: Patient is a 24-year-old male presenting to the emergency department with complaint of pruritic rash to his entire body since Tuesday. Complains of mild shortness of breath. Has seen PCP and was prescribed Moriah without change in symptoms. States that he is going through a breakup and his ex decided to get a cat which he is severely allergic to. States that when he got his daughter for visitation, his symptoms began and he believes this is due to cat hair and dander on her clothing. Denies difficulty breathing or swallowing. Denies abdominal pain, nausea, vomiting or diarrhea. MD complaint: rash Onset (ago): day(s) Related Data Previous Rx's ?Medication ?Instructions ?Recorded albuterol sulfate 90 mcg/actuation 2 inh inhalation Q4-6H PRN 05/21/23 breath activated powder inhaler shortness of breath or wheezing #1 ea prednisone 20 mg tablet 40 mg (2 x 20 mg) PO DAILY 5 days 05/21/23 #10 tabs ketorolac 10 mg tablet 10 mg PO TID PRN pain #12 tabs 02/04/24 levofloxacin 500 mg tablet 500 mg PO DAILY #9 tabs 02/04/24 diphenhydramine HCl 25 mg capsule 25 mg PO TID PRN allergic reaction 02/05/24 (Benadryl) #21 caps famotidine 40 mg tablet (Pepcid) 40 mg PO DAILY 7 days #7 tabs 02/05/24 prednisone 20 mg tablet 40 mg (2 x 20 mg) PO DAILY 5 days 02/05/24 #10 tabs sulfamethoxazole 800 1 tab PO BID 10 days #20 tabs 02/05/24 mg-trimethoprim 160 mg tablet (Bactrim DS) hydrocortisone 2.5 % topical cream 1 appl topical QID PRN rash #453.6 03/16/24 grams prednisone 20 mg tablet 60 mg (3 x 20 mg) PO BID #15 tabs 03/16/24 cetirizine 10 mg tablet 10 mg PO DAILY #30 tabs 03/17/24 epinephrine 0.3 mg/0.3 mL 0.3 mg (0.3 mL) IM Q10M PRN 03/17/24 injection, auto-injector anaphylaxis #2 ea famotidine 20 mg tablet (Pepcid) 20 mg PO DAILY 14 days #14 tabs 03/17/24 hydroxyzine HCl 50 mg tablet 50 mg PO Q8H PRN itching #60 tabs 03/17/24 prednisone 10 mg tablet 10 mg PO DIRECTED #41 tabs 07/28/24 famotidine 20 mg tablet 20 mg PO DAILY #14 tabs 08/10/24 prednisone 20 mg tablet See Rx Instructions .Route 08/10/24 .COMPLEX #18 tabs Allergies Allergy/AdvReac Type Severity Reaction Status Date / Time cat dander (CAT) Allergy Intermediate SNEEZING Verified 08/10/24 09:37 ITCHY EYES Review of Systems Review of Systems: As per HPI Yes all other systems are reviewed and are negative Constitutional: Constitutional: Reports as per HPI [facility] Past Medical History Medical History Eczema Asthma Asthma Social History Social History Alcohol intake: current Alcohol intake frequency: holidays/special occasions only Patient Tobacco Use Status: Current everyday Tobacco user Tobacco use type: Smokeless Tobacco e-Cigarette/Vaping Use: Currently Using Second Hand Smoke Exposure: No Advance Directives: Yes Advance Directives on File: Yes Advance Directives Date on File: 05/23/23 Do you have a plan to hurt others: No Plan service: No Physical Exam ED Vital Signs: Vital Signs - 24 hr 08/10/24 09:37 08/10/24 10:07 08/10/24 12:55 Temperature 98.0 F 98.2 F 98.4 F Pulse Rate 87 87 65 Respiratory Rate 16 12 18 Blood Pressure 135/49 L 119/70 112/56 L Pulse Oximetry 100 100 99 Oxygen Delivery Method Room Air Room Air Room Air BMI result Body Mass Index 36.6 Vital signs have been reviewed and appear to be correct. Blood pressure normal. Heart rate normal. Respiratory rate normal. Temperature normal. Oxygen saturation normal. Const General: cooperative, healthy appearing and no acute distress Orientation/consciousness: oriented to person, oriented to place, oriented to time and patient oriented x3 Limitations: no limitations HENMN Head: Yes normocephalic and Yes atraumatic Ears: external ears normal General nose exam: Normal external nose present Face and sinus: Yes face symmetric Mouth: Normal oral and palatal mucosa present, lip normal, tongue normal, oropharynx normal, moist mucous membranes, no audible dysphonia and no drooling Throat: Yes posterior oropharynx normal, Yes uvula midline and No uvular edema Eyes Pupils: Equal, round and reactive pupils present Neck Neck: Yes normal visual inspection and Yes supple Resp Effort & Inspection: normal respiratory effort and able to speak in complete sentences Auscultation: clear to auscultation bilaterally Cardio Rate: regular rate Rhythm: regular rhythm Heart sounds: S1 normal heart sound present and S2 normal heart sound present GI Palpation (GI): Soft to palpation and nontender Auscultation: normoactive bowel sounds General: Yes no CVA tenderness Back/Spine/Pelvis Back: no CVA tenderness Skin General skin exam: elasticity normal and turgor normal Rashes: rashes noted (diffuse erythematous urticaria to face, trunk and extremities) Neuro General: oriented to person, oriented to place, oriented to time, patient oriented x3, moves all extremities, no focal motor deficits and CN's II-XI intact bilaterally Cranial nerves: Yes Equal, round and reactive pupils present Cognition (Neuro): normal cognition Extrem General: Yes full ROM, Yes no pedal edema and Yes no calf tenderness Psych Mental Status: mental status grossly normal Affect: normal affect Thought process: Normal thought process present Medications Administered Discontinued Medications Generic Name Dose Route Start Last Admin Trade Name Jakeq PRN Reason Stop Dose Admin Diphenhydramine HCl 50 mg 08/10/24 10:08/10/24 10:44 Diphenhydramine Hcl 50 Mg/Ml Vial IVPUSH 08/10/24 10:26 50 mg ONCE ONE Administration Famotidine 20 mg 08/10/24 10:25 08/10/24 10:44 Famotidine/Pf 20 Mg/2 Ml Vial IVPUSH 08/10/24 10:26 20 mg ONCE ONE Administration Sodium Chloride 1,000 mls @ 999 mls/hr 08/10/24 10:30 08/10/24 10:43 Ns IV 08/10/24 11:30 999 mls/hr .Q1H1M CHUYITA Administration Methylprednisolone Sodium Succinate 125 mg 08/10/24 10:25 08/10/24 10:50 Methylprednisolone Sod Succ 125 Mg Vial IVPUSH 08/10/24 10:26 Not Given ONCE ONE Methylprednisolone Sodium Succinate 125 mg 08/10/24 10:45 08/10/24 10:54 Methylprednisolone Sod Succ 125 Mg/2 Ml Vial IVPUSH 08/10/24 10:46 125 mg ONCE ONE Administration Medical Decision Making Medical Decision Making [facility] Narrative: Patient is a 24-year-old male presenting to the emergency department with complaint of pruritic rash to his entire body since Tuesday. On exam patient is awake, A+Ox3, VS WNL, afebrile, normal neurological exam without focal deficits, physical exam findings as above. Given reported symptoms and physical exam findings, initial differential includes but is not limited to contact dermatitis. Do not suspect anaphylaxis. Patient mildly tachycardic on arrival, EKG shows NSR. Treated with benadryl, solu-medrol, famotidine and IV fluids. Good improvement in rash after medications, will discharge home on tapering course of prednisone, advised patient to use daily cetirizine and famotidine. Follow up with PCP. Return precautions discussed. Patient verbalized understanding of and agreement with plan. Differential Diagnosis Differential Diagnoses: The differential diagnosis associated with the presentation includes as per [facility] Admission/Observation Consideration of admission/observation: Escalation of care including admission/observation considered Independent Interpretation I performed an independent interpretation of an: EKG (Normal sinus rhythm, rate 73 beats per minute, normal PA interval and QTC) External Record Review External record reviewed: Inpatient record, Office record and Outpatient record Prescription Management I considered prescription management with: Other Discharge Plan Discharge Clinical Impression: Allergic reaction Qualifiers: Encounter type: initial encounter Qualified Code(s): T78.40XA - Allergy, unspecified, initial encounter Patient Disposition: Home, Self-Care Instructions: General Allergic Reaction (ED) Additional Instructions: You were evaluated in the emergency department today for an allergic reaction. You have been given medications to control your symptoms. You have been observed for several hours in the emergency department and you are stable for discharge at this time. We recommend that you take cetirizine (Zyrtec) 10mg daily. If needed to control your symptoms, you can increase this to 10mg in the morning and 10mg at night. If symptoms persist, you can increase to 20mg in the morning and 20mg at night. DO NOT EXCEED TOTAL DAILY DOSE OF 40mg. You are being prescribed famotidine which is a different type of antihistamine. You are also being prescribed prednisone which is a steroid to decrease inflammation. Please schedule an appointment with your primary care physician for follow-up. Return to the emergency department if you experience rashes, difficulty breathing or swallowing, lip/mouth/tongue swelling, vomiting, or for any other concerning symptoms. Prescriptions: New famotidine 20 mg tablet 20 mg PO DAILY Qty: 14 0RF prednisone 20 mg tablet See Rx Instructions .ROUTE .COMPLEX Qty: 18 0RF Rx Instructions: 60 mg (3 tabs) x3 days, then 40 mg (2 tabs) x3 days, then 20 mg (1 tab) x3 days No Action prednisone 20 mg tablet 40 mg PO DAILY 5 Days Qty: 10 0RF albuterol sulfate 90 mcg/actuation aerosol powdr breath activated 2 inh inhalation Q4-6H PRN (Reason: shortness of breath or wheezing) Qty: 1 0RF levofloxacin 500 mg tablet 500 mg PO DAILY Qty: 9 0RF ketorolac 10 mg tablet 10 mg PO TID PRN (Reason: pain) Qty: 12 0RF prednisone 20 mg tablet 40 mg PO DAILY 5 Days Qty: 10 0RF diphenhydramine HCl [Benadryl] 25 mg capsule 25 mg PO TID PRN (Reason: allergic reaction) Qty: 21 0RF famotidine [Pepcid] 40 mg tablet 40 mg PO DAILY 7 Days Qty: 7 0RF sulfamethoxazole-trimethoprim [Bactrim DS] 800-160 mg tablet 1 tab PO BID 10 Days Qty: 20 0RF prednisone 20 mg tablet 60 mg PO BID Qty: 15 0RF hydrocortisone 2.5 % cream 1 appl topical QID PRN (Reason: rash) Qty: 453.6 0RF cetirizine 10 mg tablet 10 mg PO DAILY Qty: 30 0RF hydroxyzine HCl 50 mg tablet 50 mg PO Q8H PRN (Reason: itching) Qty: 60 0RF famotidine [Pepcid] 20 mg tablet 20 mg PO DAILY 14 Days Qty: 14 0RF epinephrine 0.3 mg/0.3 mL auto-injector 0.3 mg IM Q10M PRN (Reason: anaphylaxis) Qty: 2 0RF Rx Instructions: for 2 doses prednisone 10 mg tablet 10 mg PO DIRECTED Qty: 41 0RF Rx Instructions: see taper instructions 60mg on day 1-5, 40mg on day 6, 30mg on day 7, 20mg on day 8, 10mg on day 9, 5mg on day 10 Print Language: Samoan
[2024-08-10 10:07] VITALS: BP 119/70; PULSE 87; RESP 12; TEMP 36.8; O2SAT 100
--- NOTE | 2024-08-10 10:15 | PC.NURSE ---
Pt to ED 6 from [facility]. A/O x 3, ambulating with steady gait. Hives/reddened rash noted throughout body. Pt states exposure to cat dander as a result of custody [place]endez for child. States he took 1 dose of benadryl yesterday and took another dose of a unknown medication this morning with no releif. Speaking full clear sentences, respirations even and unlabored. Pt states he is having pain to left chest with deep inspiration 10/10, MD aware and EKG obtianed.
[2024-08-10] MEDS: 0.9 % Sodium Chloride 1,000 ML 999 ML IV (10:43)
[2024-08-10] MEDS: diphenhydrAMINE HCL 50 MG/ML VIAL IVPUSH (10:44)
[2024-08-10] MEDS: Famotidine/PF 20 MG/2 ML VIAL IVPUSH (10:44)
[2024-08-10] MEDS: methylPREDNISolone Sod Succ 125 MG/2 ML VIAL IVPUSH (10:54)
--- OUTSIDE RECORDS SUMMARY | 2024-08-10 11:22 | XMS_ITS | Clinical Summary ---
Author Organization [facility] [address] [facility] Address [address] [place], [place] Phone Care Team Providers Care Wood Machine Carver Name Role Phone Antelmo Xavier MD Primary Care Provider Allergies Active Allergy Reactions Criticality Noted Date Comments Cat Dander 02/20/2024 Levofloxacin Rash 02/20/2024 Medications hydrOXYzine HCL (ATARAX) 10 mg tablet Take 1 tablet (10 mg total) by mouth 3 (three) times a day if needed for itching. 60 tablet 02/20/2024 Active fexofenadine (JOSELINE) 180 mg tablet Take 1 tablet (180 mg total) by mouth 1 (one) time each day. 90 tablet 1 05/21/2024 Active Active Problems Problem Noted Date Diagnosed Date Obesity (BMI 30-39.9) 02/20/2024 Encounters Date Type Department Care Team Description 05/21/2024 11:30 AM EDT Office Visit Adult Medicine [facility] [address] [place] [address] Lulu Shirley PA Routine general medical examination at a health care facility (Primary Dx) from Last 3 Months Medical History Medical [...] drink = 0.6 oz pur e alcohol) Housing Instability Answer Date Recorde d Are you worried that in the next 2 months you may not have stable housing? No 05/21/2024 Food Access & Nutrition Answer Date Rec orded Do you have access to a vari ety of food including fruits and vegetables? Yes 05/21/2024 Access to Healthcare Answer Date Record ed Within the last 3 months, ho w many times did you visit the emergency department for your medical care? 0 05/21/2024 Health Literacy Answer Date Recorded How often do you need to hav e someone help you when you read instructions, pamphlets, or other written material from your doctor or pharmacy? Never 05/21/2024 Caregiver: How often do you need to have someone help you when you read instructions, pamphlets, or other written material from your doctor or pharmacy? Not on file 05/21/2024 Financial Risk Answer Date Recorded How hard is it for you to pa y for the very basics like food, housing, medical care, and air conditioning / heating? Not very hard 05/21/2024 Transportation Answer Date Recorded Has the lack of transportati on kept you from meetings, work, or from getting things needed for daily living? No Has the lack of transportati on kept you from medical appointments or from getting medications? No 05/21/2024 Social Isolation Answer Date Recorded How often do you feel lonely or isolated from th ose around you? Never 05/21/2024 Food Risk Answer Date Recorded Within the past 12 months we worried whether our food would run out before we got money to buy more. Never true 05/21/2024 Within the past 12 months th e food we bought just didn't last and we didn't have money to get more. Never true 05/21/2024 Dependent Care Answer Date Recorded Do you need help finding or paying for care for your loved ones. For example, children's service worker or elderly care for an older adult? No 05/21/2024 Education Answer Date Recorded Do you think completing more education or training, like finishing a GED, going to college, or learning a trade, would be helpful for you? No 05/21/2024 Employment and Income Answer Date Recor ded During the last four weeks, have you been actively looking for work? No 05/21/2024 Living Situation Answer Date Recorded What is your living situation? 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 Not on file Not on file Obstetrics History Last Filed Vital Signs Vital Sign Reading Time Taken Comments Blood Pressure 110/60 05/21/2024 11:35 AM EDT Pulse 60 05/21/2024 11:35 AM EDT Temperature 36.8 C (98.2 F) 05/21/2024 11:35 AM EDT Respiratory Rate 16 05/21/2024 11:35 AM EDT Oxygen Saturation 97% 05/21/2024 11:35 AM EDT Inhaled Oxygen Concentration - - Weight 89.9 kg (198 lb 3.2 oz) 05/21/2024 11:35 AM EDT Height 157.5 cm (5' 2 ) 05/21/2024 11:35 AM EDT Body Mass Index 36.25 05/21/2024 11:35 AM EDT Plan of Treatment Upcoming Encounters Date Type Department Care Team (Late st Contact Info) Description 05/27/2025 11:30 AM EDT Office Visit Adult Medicine [facility] [address] [place] [address] Antelmo Xavier MD [address] [place] [address] Health Maintenance Due Date Last Done Comments Pneumococcal Vaccine: Pediatrics (0 to 5 Years) and At-Risk Patients (6 to 64 Years) (1 of 1 - PPSV23) 02/02/2006 05/09/2001, 05/09/2001, 2000, Additional history exists COVID-19 Vaccine ( season) 2023 Depression Screening 07/05/2024 07/06/2023 Influenza Vaccine (Season Ended) 2024 10/27/2017, 03/13/2015, 03/02/2013, Additional history exists Social Influencers of Health Screening 05/21/2025 05/21/2024 DTaP,Tdap,and Td Vaccines (8 - Td or Tdap) 12/11/2027 12/10/2017, 02/18/2012, 04/22/2004, Additional history exists Cholesterol Screening (Lipid Panel) 07/03/2029 07/03/2024, 02/27/2024, 02/27/2024 Hepatitis B Vaccines Completed 2000, 2000, 2000 HIB Vaccines Completed 05/09/2001, 02/2000, 2000, Additional history exists MMR Vaccines Completed 04/22/2004, 03/14/2001 Varicella Vaccines Completed 01/25/2008, 03/14/2001 IPV Vaccines Completed 09/29/2011, 10/2004, 09/28/2001, Additional history exists Hepatitis A Vaccines Completed 03/02/2013, 01/23/20 10 HPV Vaccines Completed 07/03/2013, 02/14, 02/18/2012 Meningococcal ACWY Vaccine Completed 10/27/2017, HIV Screening Completed 02/27/2024 Hepatitis C Screening Completed 02/27/2024 Meningococcal B Vaccine Aged Out No l onger eligible based on patient's age to complete this topic RSV Immunization Patients Under 20 months Aged Out No longer eligible based on patient's age to complete this topic Procedures Procedure Name Priority Date/Time Associated Diagnosis Comments CBC WITH AUTO DIFFERENTIAL Routine 07/03/2024 10:01 AM EDT Leukocytosis, unspecified type LIPID PANEL WITH REFLEX TO DIRECT LDL Routine 07/03/2024 10:01 AM EDT Hypertriglyceridemia POTASSIUM Routine 07/03/2024 10:01 AM EDT Hypokalemia CBC AND DIFFERENTIAL Routine 07/03/2024 10:01 AM EDT Leukocytosis, unspecified type HEPATITIS C ANTIBODY Routine 02/27/2024 1:55 PM EST Need for hepatitis C screening test HIV 1, 2 ANTIBODY, P24 ANTIGEN WITH REFLEX TO DIFFERENTIATION Routine 02/27/2024 1:55 PM EST Screening for HIV (human immunodeficiency virus) from Last 3 Months or Most Recently Relevant to Health Maintenance Results * (ABNORMAL) Lipid panel with reflex to direct LDL (07/03/2024 10:01 AM EDT) Cholesterol 142 0 - 200 mg/dL LAB CHEMISTRY METHOD 07/03/2024 12:46 PM EDT [facility] Triglycerides 243(H) 0 - 150 mg/dL LAB CHEMISTRY METHOD 07/03/2024 12:46 PM EDT [facility] HDL 34(L) >=40 mg/dL LAB CHEMISTRY METHOD 07/03/2024 12:46 PM EDT [facility] LDL Calculated 59 0 - 100 mg/dL LAB CHEMISTRY METHOD 07/03/2024 12:46 PM EDT [facility] VLDL Cholesterol Remi 48.6 mg/dL LAB CHEMISTRY METHOD 07/03/2024 12:46 PM EDT [facility] Non HDL Chol. (LDL+VLDL) 108 <145 mg/dL LAB CHEMISTRY METHOD 07/03/2024 12:46 PM EDT [facility] Chol/HDL Ratio 4.2 0.0 - 4.4 LAB CHEMISTRY METHOD 07/03/2024 12:46 PM EDT [facility] Blood Venous blood specimen / Unknown Venipuncture / Unknown 07/03/2024 10:01 AM EDT 07/03/2024 10:01 AM EDT us Lulu Casper MONTOYA LAB BLOOD ORDERABLES Final Resul t [facility] [address] [place] [address], [place] [phone] * (ABNORMAL) CBC auto differential (07/03/2024 10:01 AM EDT) [facility] WBC 10.8 4.8 - 10.8 K/mcL LAB HEMETOLOGY METHOD 07/03/2024 12:42 PM [facility] RBC 5.00 4.50 - 5.50 M/mcL LAB HEMETOLOGY METHOD 07/03/2024 12:42 PM [facility] Hemoglobin 13.3(L) 13.5 - 17.5 g/dL LAB HEMETOLOGY METHOD 07/03/2024 12:42 PM [facility] Hematocrit 42.4 42.0 - 54.0 % LAB HEMETOLOGY METHOD 07/03/2024 12:42 PM [facility] MCV 85.5 79.0 - 98.0 FL LAB HEMETOLOGY METHOD 07/03/2024 12:42 PM [facility] MCH 26.8(L) 27.0 - 32.0 pcg LAB HEMETOLOGY METHOD 07/03/2024 12:42 PM [facility] MCHC 31.4(L) 32.0 - 37.0 g/dL LAB HEMETOLOGY METHOD 07/03/2024 12:42 PM [facility] RDW 14.0 11.0 - 15.0 % LAB HEMETOLOGY METHOD 07/03/2024 12:42 PM [facility] Platelets 399 130 - 400 K/mcL LAB HEMETOLOGY METHOD 07/03/2024 12:42 PM [facility] MPV 10.2 7.0 - 11.0 FL LAB HEMETOLOGY METHOD 07/03/2024 12:42 PM [facility] NRBC 0.0 <1.0 % LAB HEMETOLOGY METHOD 07/03/2024 12:42 PM [facility] NRBC Absolute 0.00 <0.10 K/mcL LAB HEMETOLOGY METHOD 07/03/2024 12:42 PM [facility] Neutrophils Relative 51.9 % LAB HEMETOLOGY METHOD 07/03/2024 12:42 PM [facility] Comment:This is an appended report. These results have been appended to a previously preliminary verified report. Lymphocytes Relative 16.8 % LAB HEMETOLOGY METHOD 07/03/2024 12:42 PM [facility] Comment:This is an appended report. These results have been appended to a previously preliminary verified report. Monocytes Relative 6.5 % LAB HEMETOLOGY METHOD 07/03/2024 12:42 PM [facility] Comment:This is an appended report. These results have been appended to a previously preliminary verified report. Eosinophils Relative 23.6 % LAB HEMETOLOGY METHOD 07/03/2024 12:42 PM [facility] Comment:This is an appended report. These results have been appended to a previously preliminary verified report. Basophils Relative 1.0 % LAB HEMETOLOGY METHOD 07/03/2024 12:42 PM [facility] Comment:This is an appended report. These results have been appended to a previously preliminary verified report. Immature Granulocytes Relative 0.2 % LAB HEMETOLOGY METHOD 07/03/2024 12:42 PM [facility] Comment:This is an appended report. These results have been appended to a previously preliminary verified report. Neutrophils Absolute 5.57 1.50 - 7.00 K/mcL LAB HEMETOLOGY METHOD 07/03/2024 12:42 PM [facility] Comment:This is an appended report. These results have been appended to a previously preliminary verified report. Lymphocytes Absolute 1.81 1.00 - 5.00 K/mcL LAB HEMETOLOGY METHOD 07/03/2024 12:42 PM [facility] Comment:This is an appended report. These results have been appended to a previously preliminary verified report. Monocytes Absolute 0.70 0.20 - 1.00 K/mcL LAB HEMETOLOGY METHOD 07/03/2024 12:42 PM EDT [facility] Comment:This is an appended report. These results have been appended to a previously preliminary verified report. Eosinophils Absolute 2.54(H) 0.00 - 0.50 K/mcL [facility] 07/03/2024 12:42 PM EDT [facility] Comment:This is an appended report. These results have been appended to a previously preliminary verified report. Basophils Absolute 0.11 0.00 - 0.20 K/mcL LAB [facility] METHOD 07/03/2024 12:42 PM EDT [facility] Comment:This is an appended report. These results have been appended to a previously preliminary verified report. Immature Granulocytes Absolute 0.02 0.00 - 0.03 K/mcL LAB [facility] METHOD 07/03/2024 12:42 PM EDT [facility] Comment:This is an appended report. These results have been appended to a previously preliminary verified report. Blood Venous blood specimen / Unknown Venipuncture / Unknown 07/03/2024 10:01 AM EDT 07/03/2024 10:01 AM EDT us Lulu Shirley PA LAB BLOOD ORDERABLES Final Resul t [facility] [address] [place] [address], * Potassium (07/03/2024 10:01 AM EDT) [facility] Signature Potassium 4.2 3.5 - 5.5 mmol/L LAB CHEMISTRY METHOD 07/03/2024 12:46 PM EDT [facility] Comment:Hemolysis present Blood Venous blood specimen / Unknown Venipuncture / Unknown 07/03/2024 10:01 AM EDT 07/03/2024 10:01 AM EDT us Lulu Shirley PA LAB BLOOD ORDERABLES Final Resul t Performing Organization Address City/[facility]/ZIP Co de Phone Number [facility] [address] [place] [address], [place] [phone] * Hepatitis C antibody (02/27/2024 1:55 PM EST) Hepatitis C Antibody Negative Negative LAB CHEMISTRY METHOD 02/27/2024 9:44 PM EST [facility] Blood Venous blood specimen / Unknown Venipuncture / Unknown 02/27/2024 1:55 PM EST 02/27/2024 1:55 PM EST us Lulu Shirley PA LAB BLOOD ORDERABLES Final Resul t Performing Organization Address [facility] de Phone Number [facility] [address] [place] [address], [place] [phone] * HIV 1,2 antibody, p24 antigen with reflex to differentiation (02/27/2024 1:55 PM EST) Pathologist [facility] HIV Combo AB/AG Negative Negative LAB CHEMISTRY METHOD 02/27/2024 9:44 PM EST [facility] Blood Venous blood specimen / Unknown Venipuncture / Unknown 02/27/2024 1:55 PM EST 02/27/2024 1:55 PM EST Narrative [facility] - 02/27/2024 9:44 PM EST This assay is a 4th generation assay allowing for earlier detection of HIV infection by detecting the presence of the HIV-1 p24 antigen as well as the traditional antibodies to HIV type 1 (including group O) and type 2. Use of a 4th generation assay is the current CDC recommendation for HIV screening. us Lulu Shirley PA LAB BLOOD ORDERABLES Final Resul t Performing Organization Address [facility] Co de Phone Number [facility] [address] [place] [address], from Last 3 Months or Most Recently Relevant to Health Maintenance Insurance [facility] Care Teams Wood Machine Carver Relationship Specialty Start Date End Date Antelmo Xavier MD [address] [place] [address] PCP - General Internal Medicine 01/24/24
[2024-08-10 12:55] VITALS: BP 112/56; PULSE 65; RESP 18; TEMP 36.9; O2SAT 99
== END 2024-08-10 13:18 | disposition home or self-care (01) ==
PROVIDERS: Emergency Provider Emergency Medicine; PCP Internal Medicine
DX: T78.40XA Allergy, unspecified, initial encounter (principal); R21 Rash and other nonspecific skin eruption; X58.XXXA Exposure to other specified factors, initial encounter; R06.02 Shortness of breath; J45.909 Unspecified asthma, uncomplicated
CPT/HCPCS: 93005; 96361; 96374; 96375; 99284; J1200; J1308; J2919

== ENCOUNTER → 2024-08-10 10:04 | Outpatient (BNV) | payer OTHER, SELFPAY | PROVIDERS: Emergency Provider Emergency Medicine; PCP Internal Medicine; Visit Provider Internal Medicine | DX: R06.02 Shortness of breath (principal) | CPT/HCPCS: 93010 ==